=== PATIENT | female | born 1930 | race Hispanic/Latino ===

== ENCOUNTER 2019-01-26 13:16 | Inpatient (IN) | payer MEDICARE, BC ==
--- NOTE | 2019-01-26 14:10 | C.PDOC ---
History Of Present Illness PGY-[address] Cruz Patient is a 88 year old female with pmhx of vertigo was brought to the hospital via ambulance forworsening dizziness this morning. Patient was at home when starting feeling dizziness and tried to reach the door when she fell, hitting her right foot to the side of a kitchen table. Neighbor attended to her but was not able to stand up after fall due to right lower extremity/ankle pain. Patient denies LOC, headaches, vision or hearing changes, trauma to the head, chest pain, SOB, n/v. Patient states dizziness has resolved at this time. Patient has not followed her PMD in 4-5 years. <Edouard Cazares - Last Filed: 01/26/19 16:13> Patient seen and examined by me. Agree with above history. <Madison Cruz - Last Filed: 01/26/19 16:32> History Per: Patient History/Exam Limitations: no limitations Onset/Duration Of Symptoms: Mins Current Symptoms Are (Timing): Gone Associated Symptoms Preceding Syncopal Episode: No Predromal Symptoms (Sudden Onset), Lightheadedness Seizure Or Post-ictal Symptoms: None Possible Causative Factor(s): Vertigo Fall Associated With With Symptoms: Yes, Positive Injury (right LE, including ankle area ) Severity: Moderate - Symptoms Of CVA Associated Symptoms: denies: Impaired Speech, Seizure Activity, New Vision Deficit(Left), New Vision Deficit(Right), Decreased Ability To Walk Recent Head Trauma: No <Edouard Cazares - Last Filed: 01/26/19 16:13> <Madison Cruz - Last Filed: 01/26/19 16:32> Time Seen by Provider: 01/26/19 14:00 Chief Complaint (Nursing): Dizziness/Lightheaded Past Medical History Vital Signs: Last Vital Signs Temp 97.3 F L 01/26/19 13:24 Pulse 60 01/26/19 13:24 Resp 18 01/26/19 13:24 BP 175/76 H 01/26/19 13:24 Pulse Ox 99 01/26/19 13:24 Primary Care Provider: FAMILY PROVIDER,NO - Medical History PMH: Anemia Surgical History: No Surg Hx Family History: States: Unknown Family Hx - Social History Hx Tobacco Use: No Hx Alcohol Use: No Hx Substance Use: No - Immunization History Hx Tetanus Toxoid Vaccination: No Hx Influenza Vaccination: No Hx Pneumococcal Vaccination: No <Edouard Cazares - Last Filed: 01/26/19 16:13> Vital Signs: Last Vital Signs Temp 98.1 F 01/26/19 15:58 Pulse 64 01/26/19 15:58 Resp 18 01/26/19 13:24 BP 165/77 H 01/26/19 15:58 Pulse Ox 99 01/26/19 16:15 <Madison Cruz - Last Filed: 01/26/19 16:32> Review Of Systems Constitutional: Negative for: Fever, Chills, Weakness Eyes: Negative for: Vision Change Cardiovascular: Negative for: Chest Pain, Light Headedness Respiratory: Negative for: Cough, Shortness of Breath Genitourinary: Negative for: Dysuria, Frequency, Hematuria Musculoskeletal: Positive for: Leg Pain, Foot Pain Neurological: Positive for: Dizziness. Negative for: Weakness, Numbness, Change in Speech, Seizures, Altered Mental Status, Headache <Edouard Cazares - Last Filed: 01/26/19 16:13> Physical Exam - Physical Exam Appears: Non-toxic, No Acute Distress Skin: Normal Color, Warm, No Cyanotic Head: Atraumatic, Normacephalic, No Tenderness Eye(s): bilateral: Normal Inspection, PERRL, EOMI Oral Mucosa: Moist Tongue: Normal Appearing Neck: Normal, Normal ROM Cardiovascular: Rhythm Regular, No Edema, No Murmur Respiratory: Normal Breath Sounds, No Rales, No Rhonchi, No Wheezing Gastrointestinal/Abdominal: Normal Exam, Bowel Sounds Extremity: Tenderness (distal right lower extremity and ankle area), No Deformity, Swelling (right LE ) Pulses: Left Dorsalis Pedis: Normal, Right Dorsalis Pedis: Normal Neurological/Psych: Oriented x3, Normal Speech, Normal Cognition, Normal Cranial Nerves, Normal Motor, Normal Sensation, Other (normal cerebellar function ) Disoriented To: Person, Place, Time, Situation Extremity: Right: No Drift, Left: No Drift, Upper: No Drift <Edouard Cazares - Last Filed: 01/26/19 16:13> ED Course And Treatment - Laboratory Results Result Diagrams: 01/26/19 15:02 01/26/19 15:02 O2 Sat by Pulse Oximetry: 99 <Edouard Cazares - Last Filed: 01/26/19 16:13> - Laboratory Results Result Diagrams: 01/26/19 15:02 01/26/19 15:02 Lab Results: Total Bilirubin 0.5 mg/dL (0.2-1.3) 01/26/19 15:02 AST 22 U/L (14-36) 01/26/19 15:02 ALT 19 U/L (9-52) 01/26/19 15:02 Alkaline Phosphatase 67 U/L (38-126) 01/26/19 15:02 Total Protein 7.6 g/dL (6.3-8.3) 01/26/19 15:02 Albumin 4.3 g/dL (3.5-5.0) 01/26/19 15:02 Globulin 3.3 gm/dL (2.2-3.9) 01/26/19 15:02 Albumin/Globulin Ratio 1.3 (1.0-2.1) 01/26/19 15:02 Lab Interpretation: No Acute Changes ECG: Interpreted By De ECG Rhythm: Sinus Rhythm, 1st Degree HB ECG Interpretation: No Acute Changes - Radiology CXR: Interpreted by De CXR Interpretation: Yes: No Acute Disease - Other Rad right ankle/foot X-Ray: Interpreted by De Interpretation: Bimalleolar fracture - CT Scan/US head Other Rad Studies (CT/US): Read By Radiologist, Radiology Report Reviewed CT/US Interpretation: Accession No. : [id number]. Patient Name / ID : RUBY CHAPARRO / [id number]. Exam Date : 01/26/2019 14:35:59 ( Approved ). Study Comment : Sex / Age : F / 88Y. Creator : Ismael Paniagua MD. Dictator : Ismael Paniagua MD. 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 Approver2 : Report Date : 01/26/2019 14:54:57. My Comment : * . Date of service: 01/26/2019. PROCEDURE: CT HEAD WITHOUT CONTRAST. HISTORY: dizziness. COMPARISON: 03/08/2015. TECHNIQUE: Axial computed tomography images were obtained through the head/brain without intravenous contrast. Radiation dose: Total exam DLP = 941.3 mGy-cm. This CT exam was performed using one or more of the following dose reduction techniques: Automated exposure control, adjustment of the mA and/or kV according to patient size, and/or use of iterative reconstruction technique. FINDINGS: HEMORRHAGE: No intracranial hemorrhage. BRAIN: No mass effect or edema. Mild to moderate diffuse atrophy consistent with patient age. Patchy periventricular and deep white matter lucency consistent with microvascular white matter ischemic change. No evidence of acute infarct. VENTRICLES: Unremarkable. No hydrocephalus. CALVARIUM: Unremarkable. PARANASAL SINUSES: Sphenoid mucoperiosteal thickening consistent with chronic sinusitis. MASTOID AIR CELLS: Unremarkable as visualized. No inflammatory changes. OTHER FINDINGS: None. IMPRESSION: No intracranial mass, hemorrhage or evidence of acute infarct. Age related atrophy and chronic white matter ischemic change. Chronic sphenoid sinusitis. Progress Note: Patient seen and evaluated by podiatry. Plan admission for surgical repair of ankle fracture. - Physician Consult Information Outcome Of Conversation: Dr Haney willing to accept patient on his service for medical clearance and evaluation of intermittent dizziness. <Madison Cruz - Last Filed: 01/26/19 16:32> Medical Decision Making Medical Decision Making: -Ordered EKG, CBC, CMP - Chest Xray - Head CT w/o contrast - No intracranial mass, hemorrhage or evidence of acute infarct. Age related atrophy and chronic white matter ischemic change. Chronic sphenoid sinusitis. - Ordered Right Foot xray - possible bimalleolar fracture - CT w/o contrast of Rt LE ordered - Multiple fractures within obliques displaced distal fibular fracture with roughly 6 millimeters of distraction between the fracture fragments. Additional mildly displaced medial malleolar oblique fracture. Posterior malleolus minimally displaced fracture. Associated extensive circumferential soft tissue swelling. The midfoot and forefoot appear intact. 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
--- NOTE | 2019-01-26 14:58 | CT ---
Date of service: 01/26/2019 PROCEDURE: CT HEAD WITHOUT CONTRAST. HISTORY: dizziness COMPARISON: 03/08/2015 TECHNIQUE: Axial computed tomography images were obtained through the head/brain without intravenous contrast. Radiation dose: Total exam DLP = 941.3 mGy-cm. This CT exam was performed using one or more of the following dose reduction techniques: Automated exposure control, adjustment of the mA and/or kV according to patient size, and/or use of iterative reconstruction technique. FINDINGS: HEMORRHAGE: No intracranial hemorrhage. BRAIN: No mass effect or edema. Mild to moderate diffuse atrophy consistent with patient age. Patchy periventricular and deep white matter lucency consistent with microvascular white matter ischemic change. No evidence of acute infarct. VENTRICLES: Unremarkable. No hydrocephalus. CALVARIUM: Unremarkable. PARANASAL SINUSES: Sphenoid mucoperiosteal thickening consistent with chronic sinusitis. MASTOID AIR CELLS: Unremarkable as visualized. No inflammatory changes. OTHER FINDINGS: None. IMPRESSION: No intracranial mass, hemorrhage or evidence of acute infarct. Age related atrophy and chronic white matter ischemic change. Chronic sphenoid sinusitis.
--- NOTE | 2019-01-26 15:02 | CP.PCM.CON ---
History of Present Illness - History of Present Illness History of Present Illness: Podiatry Consult Note - Dr. Baer 88 y/o female with PMHx of vertigo seen in ED this afternoon for right ankle pain. She states she experienced a fall and twist of the ankle when coming out of her apartment earlier today. Admits she tried to stand up but could not bear weight on the ankle. States a neighbor called an ambulance who brought her here. At present, admits to pain all around the ankle joint. Denies tingling or burning but admits to mild numbness in the foot and toes. Denies any F/C/N/V/CP/SOB PSH: denies All: NKDA SocHx: lives alone in apartment, ambulatory without use of any assistive device. Sister in law and brother in law nearby. Denies use of EtOH, cigarettes or drug use FamHx: hypertension (mother) Review of Systems - Review of Systems All systems: reviewed and no additional remarkable complaints except (per HPI) Past Patient History - Infectious Disease Hx of Infectious Diseases: None - Past Social History Smoking Status: Never Smoked - NEUROLOGICAL Hx Vertigo: Yes - HEMATOLOGICAL/ONCOLOGICAL Hx Anemia: Yes - PSYCHIATRIC Hx Substance Use: No - SURGICAL HISTORY Hx Appendectomy: Yes - ANESTHESIA Hx Anesthesia: Yes Hx Anesthesia Reactions: No Hx Malignant Hyperthermia: No Meds Allergies/Adverse Reactions: Allergies Allergy/AdvReac Type Severity Reaction Status Date / Time No Known Allergies Allergy Verified 01/26/19 13:28 Physical Exam - Constitutional Appears: Well, Non-toxic, No Acute Distress - Extremities Exam Additional comments: Right lower extremity exam: Vasc: DP/PT pulses palpable 2/4. Temperature gradient warm to cool. Localized edema noted to perimalleolar region. CFT < 3 sec to all digits Ortho: tenderness to palpation of medial and lateral malleoli. Tenderness elicited on passive mobilization of ankle joint. Mild tenderness to posterior ankle joint. No tenderness on calf squeeze Derm: no open lesions, no erythema, no ecchymosis, no clinical signs of infection Neuro: protective and gross sensation intact Results - Vital Signs Recent Vital Signs: Last Vital Signs Temp 97.3 F L 01/26/19 13:24 Pulse 60 01/26/19 13:24 Resp 18 01/26/19 13:24 BP 175/76 H 01/26/19 13:24 Pulse Ox 99 05/22/19 14:41 - Labs Result Diagrams: 01/27/19 06:52 01/27/19 06:52 Assessment & Plan - Assessment and Plan (Free Text) Assessment: 88 y/o female with right trimalleolar ankle fracture secondary to fall Plan Patient seen and evaluated in ED Discussed plan with Dr. Buffy Souza ankle Xray and lower extremity CT reviewed- displaced oblique fibula fracture, mildly displaced medial malleolar fracture, minimally displaced posterior malleolar fracture RLE placed in well padded posterior splint - to remain strictly NWB to RLE with walker Pt to be admitted for surgical repair of unstable ankle with gait instability Requesting medical clearance/optimization at this time, appreciated Physical therapy to evaluate and treat patient with training with assistive device Likely surgery to be Thursday or Thursday pending edema status and patient's medical clearance Pain management per primary team Will continue to follow patient n house
[2019-01-26 15:12] LABS: BASO % 0.5 % (0.0-2.0); EOS # 0.1 K/uL (0.0-0.7); EOS % 0.8 % (0.0-4.0); HEMOGLOBIN 11.9 g/dL (11.0-16.0); LYMPH # 1.3 K/uL (1.0-4.3); LYMPH % 17.2 % (20.0-40.0); MEAN CORPUSCULAR HEMOGLOBIN 19.5 pg (27.0-31.0); MEAN CORPUSCULAR HGB CONC 32.2 g/dL (33.0-37.0); MEAN PLATELET VOLUME 9.1 fL (7.2-11.7); MONO # 0.5 K/uL (0.0-0.8); MONO % 6.8 % (0.0-10.0); NEUT # 5.8 K/uL (1.8-7.0); NEUT % 74.7 % (50.0-75.0); NRBC % 0.1 % (0.0-2.0); RBC 6.11 Mil/uL (3.80-5.20); RED CELL DISTRIBUTION WIDTH 17.9 % (11.5-14.5); WHITE BLOOD COUNT 7.8 K/uL (4.8-10.8)
[2019-01-26 15:13] LABS: MEAN CELL VOLUME 60.4 fL (81.0-99.0)
--- NOTE | 2019-01-26 15:20 | CT ---
Date of service: 01/26/2019 PROCEDURE: HISTORY: s/p fall, trauma to rt ankle/foot COMPARISON: TECHNIQUE: FINDINGS: Multiple fractures within obliques displaced distal fibular fracture with roughly 6 millimeters of distraction between the fracture fragments. Additional mildly displaced medial malleolar oblique fracture. Posterior malleolus minimally displaced fracture. Associated extensive circumferential soft tissue swelling. The midfoot and forefoot appear intact. IMPRESSION: Multiple ankle fractures as discussed above.
[2019-01-26 15:29] LABS: ALB/GLOB RATIO 1.3 (1.0-2.1); ALBUMIN 4.3 g/dL (3.5-5.0); ALT/SGPT 19 U/L (9-52); AST/SGOT 22 U/L (14-36); BLOOD UREA NITROGEN 14 mg/dL (7-17); CALCIUM 9.6 mg/dl (8.6-10.4); GFR NON-AFRICAN AMERICAN > 60
--- NOTE | 2019-01-26 15:39 | RAD ---
Date of service: 01/26/2019 HISTORY: dizziness COMPARISON: No prior. TECHNIQUE: 1 view obtained. FINDINGS: LUNGS: No active pulmonary disease. PLEURA: No significant pleural effusion identified, no pneumothorax apparent. CARDIOVASCULAR: No aortic atherosclerotic calcification present. Normal cardiac size. No pulmonary vascular congestion. OSSEOUS STRUCTURES: No significant abnormalities. VISUALIZED UPPER ABDOMEN: Normal. OTHER FINDINGS: None. IMPRESSION: No active disease.
--- NOTE | 2019-01-26 15:40 | RAD ---
Date of service: 01/26/2019 PROCEDURE: Right Foot Radiographs. HISTORY: s/p fall COMPARISON: None. TECHNIQUE: Two views obtained. FINDINGS: BONES: Examination limited to two views. Minimally displaced fracture of the medial malleolus and oblique fracture of the distal fibula. JOINTS: Hallux valgus deformity noted. Flexion deformity of the 2nd through 5th digits. No articular erosions. SOFT TISSUES: Normal. OTHER FINDINGS: None. IMPRESSION: Fracture medial malleolus and distal fibular diaphysis. Hallux valgus.
--- NOTE | 2019-01-26 15:41 | RAD ---
Date of service: 01/26/2019 PROCEDURE: Right Ankle Radiographs. HISTORY: s/p fall trauma to right foot/ankle COMPARISON: None available. TECHNIQUE: 3 views obtained. FINDINGS: BONES: Oblique mildly displaced fracture distal fibular diaphysis. Minimally displaced fracture of the medial malleolus. No additional fracture identified. JOINTS: Normal. No osteoarthritis. Ankle mortise maintained. Talar dome intact SOFT TISSUES: Normal. OTHER FINDINGS: None. IMPRESSION: Fracture distal fibula and medial malleolus.
--- NOTE | 2019-01-26 16:04 | CP.PCM.HP ---
History of Present Illness - History of Present Illness History of Present Illness: Medicine Note for Dr. Haney's Service This is an 88 year old female with PMHx of Vertigo who presents to the ED s/p mechanical fall. Patient states after getting ready this morning, she started to feel dizzy and lightheaded. She fell onto her buttocks, leaning more towards her right side. Denied LOC, syncope, or hitting her head. She was able to crawl to her front door and yell for help. Total time on the floor was less than 10-15 minutes as neighbors came right away to help and placed her in a chair. The ambulance was called shortly after. She admits to right ankle pain, worse with movement. ROS unremarkable otherwise. Patient is apprehensive about the surgery but wants to discuss with her sister in law and brother first before making a decision. 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 Patient lives alone in apartment complex. Ambulates without assistance, can perform all ADLs. years ago, no children. Brother and sister live in [place]. FHx: Mother: hypertension, at the age of 88 Father: in his 80s, patient unaware of what PMD: Mahsa (last seen 2 years ago) Present on Admission - Present on Admission Any Indicators Present on Admission: No Past Patient History - Infectious Disease Hx of Infectious Diseases: None - Past Social History Smoking Status: Never Smoked - NEUROLOGICAL Hx Vertigo: Yes - HEMATOLOGICAL/ONCOLOGICAL Hx Anemia: Yes - PSYCHIATRIC Hx Substance Use: No - SURGICAL HISTORY Hx Appendectomy: Yes - ANESTHESIA Hx Anesthesia: Yes Hx Anesthesia Reactions: No Hx Malignant Hyperthermia: No Meds Allergies/Adverse Reactions: Allergies Allergy/AdvReac Type Severity Reaction Status Date / Time No Known Allergies Allergy Verified 01/26/19 13:28 Physical Exam - Constitutional Appears: No Acute Distress - Head Exam Head Exam: NORMAL INSPECTION, NORMOCEPHALIC - Eye Exam Eye Exam: EOMI, Normal appearance, PERRL Pupil Exam: NORMAL ACCOMODATION - ENT Exam ENT Exam: Mucous Membranes Moist, Normal Exam - Respiratory Exam Respiratory Exam: Clear to Auscultation Bilateral, NORMAL BREATHING PATTERN. absent: Decreased Breath Sounds, Rales, Rhonchi, Wheezes - Cardiovascular Exam Cardiovascular Exam: REGULAR RHYTHM, RRR. absent: Tachycardia, Diastolic murmur, JVD, Systolic Murmur - GI/Abdominal Exam GI & Abdominal Exam: Normal Bowel Sounds, Soft. absent: Distended, Tenderness - Extremities Exam Extremities exam: Positive for: pedal pulses present Additional comments: right lower extremity in posterior splint pulses intact, warm to touch - Neurological Exam Neurological exam: Alert, Oriented x3 - Psychiatric Exam Psychiatric exam: Normal Affect, Normal Mood - Skin Skin Exam: Dry, Intact, Normal Color, Warm Results - Vital Signs Recent Vital Signs: Last Vital Signs Temp 98.1 F 01/26/19 15:58 Pulse 64 01/26/19 15:58 Resp 18 01/26/19 13:24 BP 165/77 H 01/26/19 15:58 Pulse Ox 99 01/26/19 15:58 - Labs Result Diagrams: 01/26/19 15:02 01/26/19 15:02 Labs: Laboratory Results - last 24 hr 01/26/19 01/26/19 15:02 15:02 WBC 7.8 RBC 6.11 H Hgb 11.9 Hct 36.9 MCV 60.4 L MCH 19.5 L MCHC 32.2 L RDW 17.9 H Plt Count 281 MPV 9.1 Neut % (Auto) 74.7 Lymph % (Auto) 17.2 L Clarke % (Auto) 6.8 Eos % (Auto) 0.8 Baso % (Auto) 0.5 Neut # (Auto) 5.8 Lymph # (Auto) 1.3 Clarke # (Auto) 0.5 Eos # (Auto) 0.1 Baso # (Auto) 0.0 Differential Comment Sodium 137 Potassium 4.1 Chloride 102 Carbon Dioxide 27 Anion Gap 13 BUN 14 Creatinine 0.7 Est GFR ( Amer) > 60 Est GFR (Non-Af Amer) > 60 Random Glucose 105 Calcium 9.6 Total Bilirubin 0.5 AST 22 ALT 19 Alkaline Phosphatase 67 Total Protein 7.6 Albumin 4.3 Globulin 3.3 Albumin/Globulin Ratio 1.3 Assessment & Plan - Assessment and Plan (Free Text) Plan: Right Distal Fibular Fracture Right Malleolar Fracture S/P Mechanical Fall -- Ortho consulted - Dr. Baer Imaging: - Head CT w/o contrast - No intracranial mass, hemorrhage or evidence of acute infarct. Age related atrophy and chronic white matter ischemic change. - Right Foot xray - possible bimalleolar fracture - CT w/o contrast of Rt LE ordered - Multiple fractures within obliques displaced distal fibular fracture with roughly 6 millimeters of distraction between the fracture fragments. Additional mildly displaced medial malleolar oblique fracture. Posterior malleolus minimally displaced fracture. Associated extensive circumferential soft tissue swelling. The midfoot and forefoot appear intact. 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 She is u nsure if she wants to proceed with the surgery. She wants to speak to her sister in law and brother before making a decision. Jannette Chase Dr., DO, PGY2
[2019-01-26] MEDS ORDERED: Oxycodone/Acetaminophen 5/325 mg Tab PO PRN (16:09)
[2019-01-27] MEDS ORDERED: Oxycodone/Acetaminophen 5/325 mg Tab PO PRN ×2 (06:47→06:57)
[2019-01-27 06:57] LABS: BASO # 0.1 K/uL (0.0-0.2); BASO % 0.8 % (0.0-2.0); EOS # 0.2 K/uL (0.0-0.7); EOS % 2.6 % (0.0-4.0); HEMOGLOBIN 11.2 g/dL (11.0-16.0); LYMPH # 1.2 K/uL (1.0-4.3); MEAN CELL VOLUME 60.6 fL (81.0-99.0); MEAN CORPUSCULAR HEMOGLOBIN 19.2 pg (27.0-31.0); MEAN CORPUSCULAR HGB CONC 31.7 g/dL (33.0-37.0); MONO # 0.7 K/uL (0.0-0.8); MONO % 10.1 % (0.0-10.0); NEUT % 69.5 % (50.0-75.0); RBC 5.83 Mil/uL (3.80-5.20); RED CELL DISTRIBUTION WIDTH 17.5 % (11.5-14.5); WHITE BLOOD COUNT 7.2 K/uL (4.8-10.8)
--- NOTE | 2019-01-27 07:00 | CP.PCM.PN ---
Subjective - Date & Time of Evaluation Date of Evaluation: 01/27/19 Time of Evaluation: 06:59 - Subjective Subjective: Resident Progress Note for Dr. Haney Patient examined at bedside. Was given antivert overnight for dizziness which she states did not help her and only made her sleepy. Patient complaining of nausea, sinus pressure, and lack of appetite. Pain is persistent in right ankle. Denies fevers, chills, chest pain, shortness of breath, abdominal pain. Objective - Vital Signs/Intake and Output Vital Signs (last 24 hours): Temp Pulse Resp BP Pulse Ox 98.1 F 67 20 130/73 92 L 01/27/19 04:30 01/27/19 04:30 01/27/19 04:30 01/27/19 04:30 01/27/19 04:30 Intake and Output: 01/26/19 01/27/19 18:59 06:59 Intake Total 240 Balance 240 - Medications Medications: Current Medications Acetaminophen (Tylenol 325mg Tab) 650 mg PO Q6 PRN PRN Reason: Pain, Mild (1-3) Last Admin: 01/27/19 01:28 Dose: 650 mg Enoxaparin Sodium (Lovenox) 40 mg SC DAILY ELIZABETH Ketorolac Tromethamine (Toradol) 30 mg IV Q6 PRN PRN Reason: Pain, moderate (4-7) Ondansetron HCl (Zofran Inj) 4 mg IVP Q6H PRN PRN Reason: Nausea/Vomiting Last Admin: 01/26/19 22:46 Dose: 4 mg Oxycodone/Acetaminophen (Percocet 5/325 Mg Tab) 1 tab PO Q6H PRN PRN Reason: Pain, severe (8-10) Stop: 01/29/19 16:10 Oxycodone/Acetaminophen (Percocet 5/325 Mg Tab) 0.5 tab PO ONCE PRN PRN Reason: Pain, severe (8-10) Stop: 01/30/19 06:48 - Labs Labs: 01/27/19 06:52 01/26/19 15:02 - Constitutional Appears: No Acute Distress - Head Exam Head Exam: ATRAUMATIC, NORMOCEPHALIC - Eye Exam Eye Exam: EOMI, Normal appearance, PERRL - ENT Exam ENT Exam: Mucous Membranes Moist - Respiratory Exam Respiratory Exam: Clear to Auscultation Bilateral, NORMAL BREATHING PATTERN. absent: Decreased Breath Sounds, Rales, Rhonchi, Wheezes - Cardiovascular Exam Cardiovascular Exam: REGULAR RHYTHM, RRR. absent: Tachycardia, Systolic Murmur - GI/Abdominal Exam GI & Abdominal Exam: Normal Bowel Sounds, Soft. absent: Distended, Tenderness - Extremities Exam Extremities exam: Positive for: pedal pulses present Additional comments: right lower extremity in posterior splint pulses and sensation intact - Neurological Exam Neurological exam: Alert, Awake, Oriented x3 - Psychiatric Exam Psychiatric exam: Normal Affect, Normal Mood - Skin Skin Exam: Dry, Intact, Normal Color, Warm Assessment and Plan - Assessment and Plan (Free Text) Plan: Right Distal Fibular/Malleolar Fracture - Podiatry consulted - Dr. Baer - Right Foot xray - possible bimalleolar fracture - CT w/o contrast - Multiple fractures within obliques displaced distal fibular fracture with roughly 6 millimeters of distraction between the fracture fragments. Additional mildly displaced medial malleolar oblique fracture. Posterior malleolus minimally displaced fracture. Associated extensive circumferential soft tissue swelling. The midfoot and forefoot appear intact. - posterior foot splint to immobilize joint - Tylenol (mild), Toradol (moderate), and Percocet (severe) PRN for pain - 2 units of blood ordered, patient is unsure if she wants to proceed for surgery, once decided then she will sign consent - PT/OT s/p Mechanical Fall - CXR: No infiltrates noted - Head CT w/o contrast - No intracranial mass, hemorrhage or evidence of acute infarct. Age related atrophy and chronic white matter ischemic change. 1st Degree Heart Block - ECHO results pending Vertigo - Chronic - patient has been evaluated by ENT previously PPX - GI PPX: Not indicated - DVT PPX: SCDs, Lovenox Disposition: Plan for OR pending patient's decision and medical clearance Case reviewed with Dr. Medina Daugherty PGY-1
[2019-01-27 07:08] LABS: INR 1.2; PROTHROMBIN TIME 13.2 SECONDS (9.7-12.2)
[2019-01-27 07:14] LABS: ALB/GLOB RATIO 1.6 (1.0-2.1); ALBUMIN 4.1 g/dL (3.5-5.0); ALT/SGPT 16 U/L (9-52); AST/SGOT 19 U/L (14-36); BLOOD UREA NITROGEN 12 mg/dL (7-17); CALCIUM 8.9 mg/dl (8.6-10.4); GFR NON-AFRICAN AMERICAN > 60; HDL CHOLESTEROL 71 mg/dL (30-70)
[2019-01-27 07:22] LABS: CK-MB 0.42 ng/mL (0.0-3.38)
[2019-01-27 07:25] LABS: LDL CHOLESTEROL 84 mg/dL (0-129); PARTIAL THROMBOPLASTIN TIME 30.7 SECONDS (21-34)
[2019-01-27] MEDS: Enoxaparin 40 mg Syringe SC SCH (09:19)
--- NOTE | 2019-01-27 13:24 | CP.PCM.PN ---
Subjective - Date & Time of Evaluation Date of Evaluation: 01/27/19 Time of Evaluation: 13:24 - Subjective Subjective: Podiatry Progress Note- Dr. Baer 88 y/o female seen at bedside this morning with right displaced trimalleolar ankle fracture. Pt resting comfortably in bed at time of visit with right leg elevated on pillow. States she has been feeling nauseous all morning after taking pain meds. Says she has little appetite. Admits to consistent pain in the right ankle. Admits to mild tingling in the ankle but no burning or numbness. Denies F/C/V/CP/SOB Objective - Vital Signs/Intake and Output Vital Signs (last 24 hours): Temp Pulse Resp BP Pulse Ox 97.7 F 70 20 144/68 95 01/27/19 07:00 01/27/19 07:00 01/27/19 07:00 01/27/19 07:00 01/27/19 07:00 Intake and Output: 01/27/19 01/27/19 06:59 18:59 Intake Total 240 Balance 240 - Medications Medications: Current Medications Acetaminophen (Tylenol 325mg Tab) 650 mg PO Q6 PRN PRN Reason: Pain, Mild (1-3) Last Admin: 01/27/19 01:28 Dose: 650 mg Enoxaparin Sodium (Lovenox) 40 mg SC DAILY ELIZABETH Last Admin: 01/27/19 09:19 Dose: 40 mg Ketorolac Tromethamine (Toradol) 30 mg IV Q6 PRN PRN Reason: Pain, moderate (4-7) Last Admin: 01/27/19 09:19 Dose: 30 mg Ondansetron HCl (Zofran Inj) 4 mg IVP Q6H PRN PRN Reason: Nausea/Vomiting Last Admin: 01/26/19 22:46 Dose: 4 mg Oxycodone/Acetaminophen (Percocet 5/325 Mg Tab) 1 tab PO Q6H PRN PRN Reason: Pain, severe (8-10) Stop: 01/29/19 16:10 Tramadol HCl (Ultram) 50 mg PO ONCE PRN PRN Reason: Pain, moderate (4-7) Last Admin: 01/27/19 07:13 Dose: 50 mg - Labs Labs: 01/27/19 06:52 01/27/19 06:52 PT 13.2 SECONDS (9.7-12.2) H 01/27/19 06:52 INR 1.2 01/27/19 06:52 APTT 30.7 SECONDS (21-34) 01/27/19 06:52 - Constitutional Appears: Well, Non-toxic, No Acute Distress - Extremities Exam Additional comments: RLE in posterior splint - no signs of wear; clean ,dry and intact Pt can wiggle toes without difficulty noted No strikethrough noted Capillary refill time < 3 sec to all digits - Neurological Exam Neurological Exam: Alert, Awake, Oriented x3 - Psychiatric Exam Psychiatric exam: Normal Affect, Normal Mood Assessment and Plan - Assessment and Plan (Free Text) Assessment: 88 y/o female with right trimalleolar ankle fracture secondary to fall Plan Patient seen and evaluated at bedside Discussed plan with Dr. Buffy Souza ankle Xray and R lower extremity CT reveals displaced oblique fibula fracture, mildly displaced medial malleolar fracture, minimally displaced posterior malleolar fracture RLE in well padded posterior splint - to remain strictly NWB to RLE with walker Pt scheduled for ORIF of R ankle tomorrow 9am Medical clearance requested, appreciated NPO past midnight Anti-coagulants to be held Physical therapy team on board for gait instability/management of NWB status with use of assistive device Pain management per primary team Will continue to follow patient n house
[2019-01-27] MEDS ORDERED: Fluticasone Nasal 50 mcg/Spray NAS PRN (14:49)
--- NOTE | 2019-01-27 21:18 | CP.PCM.PCO ---
Addendum Addendum: 01/27/19 21:15 Pt refusing to consent for surgery in AM, spoke w/ Primary Dr Haney, Pt will be reassessed in AM, cancel NPO diet past midnight, f/u with Podiatry on recs for scheduling procedure. May need to be transferred to rehab and have her come back for ORIF, Pt still is NWB cannot go home. unsafe discharge. CK PGY1
--- NOTE | 2019-01-27 22:22 | CARD ---
APPROVED REPORT Date of service: 01/27/2019 EXAM: Two-dimensional and M-mode echocardiogram with Doppler and color Doppler. Other Information Quality : TDSRhythm : INDICATION Pre-Op 2D DIMENSIONS IVSd0.8 (0.7-1.1cm)LVDd4.5 (3.9-5.9cm) PWd0.9 (0.7-1.1cm)LA Nwlble06 (18-58mL) LVDs2.6 (2.5-4.0cm)FS (%) 41.2 % LVEF (%)72.2 (>50%)LVEF (Dinh's)66.15 % M-Mode DIMENSIONS Left Atrium (MM)3.68 (2.5-4.0cm)IVSd1.11 (0.7-1.1cm) Aortic Root3.39 (2.2-3.7cm)LVDd5.03 (4.0-5.6cm) Aortic Cusp Exc.2.13 (1.5-2.0cm)PWd1.00 (0.7-1.1cm) FS (%) 38 %LVDs3.12 (2.0-3.8cm) LVEF (%)68 (>50%) Mitral Valve MV E Ogqecguy76.5cm/sMV A Nuxjnvzl43.2cm/sE/A ratio1.3 TDI Lateral E' Peak V5.45cm/sMedial E' Peak V4.87cm/sE/Lateral E'15.0 E/Medial E'16.7 Tricuspid Valve TR Peak Bsqnmwrn639xs/sTR Peak Gr.[id number] LEFT VENTRICLE The left ventricle is normal size. There is normal left ventricular wall thickness. Left ventricle systolic function is normal. The Ejection Fraction is 65-70%. There is normal LV segmental wall motion. The left ventricular diastolic function is normal. RIGHT VENTRICLE The right ventricle is normal size. There is normal right ventricular wall thickness. The right ventricular systolic function is normal. ATRIA The left atrium size is normal. The right atrium size is normal. The interatrial septum is intact with no evidence for an atrial septal defect. AORTIC VALVE The aortic valve is normal in structure. No aortic regurgitation is present. There is no aortic valvular stenosis. There is no aortic valvular vegetation. MITRAL VALVE The mitral valve is normal in structure. There is no evidence of mitral valve prolapse. There is no mitral valve stenosis. Mitral regurgitation is trace to mild. TRICUSPID VALVE The tricuspid valve is normal in structure. There is mild tricuspid regurgitation. Right ventricular systolic pressure is estimated at 30-40 mmHg. There is mild pulmonary hypertension. PULMONIC VALVE The pulmonic valve is not well visualized. There is mild pulmonic valvular regurgitation. GREAT VESSELS The aortic root is normal in size. PERICARDIAL EFFUSION There is no significant pericardial effusion. <Conclusion> Left ventricle systolic function is normal. The Ejection Fraction is 65-70%. No aortic regurgitation is present. Mitral regurgitation is trace to mild. There is mild tricuspid regurgitation. There is mild pulmonary hypertension. There is mild pulmonic valvular regurgitation.
[2019-01-28 06:44] LABS: BASO # 0.1 K/uL (0.0-0.2); BASO % 1.4 % (0.0-2.0); EOS # 0.1 K/uL (0.0-0.7); EOS % 1.9 % (0.0-4.0); HEMOGLOBIN 10.9 g/dL (11.0-16.0); LYMPH # 1.1 K/uL (1.0-4.3); LYMPH % 17.2 % (20.0-40.0); MEAN CELL VOLUME 60.2 fL (81.0-99.0); MEAN CORPUSCULAR HEMOGLOBIN 19.4 pg (27.0-31.0); MEAN CORPUSCULAR HGB CONC 32.3 g/dL (33.0-37.0); MEAN PLATELET VOLUME 9.4 fL (7.2-11.7); MONO # 0.6 K/uL (0.0-0.8); MONO % 8.9 % (0.0-10.0); NEUT # 4.7 K/uL (1.8-7.0); NEUT % 70.6 % (50.0-75.0); NRBC % 0.1 % (0.0-2.0); RBC 5.6 Mil/uL (3.80-5.20); RED CELL DISTRIBUTION WIDTH 17.2 % (11.5-14.5); WHITE BLOOD COUNT 6.6 K/uL (4.8-10.8)
--- NOTE | 2019-01-28 07:19 | CP.PCM.PN ---
Subjective - Date & Time of Evaluation Date of Evaluation: 01/28/19 Time of Evaluation: : - Subjective Subjective: Progress note for Dr. Haney. Patient seen and examined at bedside. States dizziness, headache and leg pain have improved since yesterday. Denies fevers, chills, chest pain, shortness of breath, abdominal pain. Objective - Vital Signs/Intake and Output Vital Signs (last 24 hours): Temp Pulse Resp BP Pulse Ox 98.3 F 72 20 143/85 95 01/28/19 00:00 01/28/19 00:00 01/28/19 00:00 01/28/19 00:00 01/28/19 00:00 - Medications Medications: Current Medications Acetaminophen (Tylenol 325mg Tab) 650 mg PO Q6 PRN PRN Reason: Pain, Mild (1-3) Last Admin: 01/27/19 15:01 Dose: 650 mg Enoxaparin Sodium (Lovenox) 40 mg SC DAILY ELIZABETH Last Admin: 01/27/19 09:19 Dose: 40 mg Fluticasone Propionate (Flonase) 0 spr VEDA DAILY PRN PRN Reason: Sinus symptoms Ketorolac Tromethamine (Toradol) 30 mg IV Q6 PRN PRN Reason: Pain, moderate (4-7) Last Admin: 01/27/19 09:19 Dose: 30 mg Ondansetron HCl (Zofran Inj) 4 mg IVP Q6H PRN PRN Reason: Nausea/Vomiting Last Admin: 01/27/19 14:27 Dose: 4 mg Oxycodone/Acetaminophen (Percocet 5/325 Mg Tab) 1 tab PO Q6H PRN PRN Reason: Pain, severe (8-10) Stop: 01/29/19 16:10 Tramadol HCl (Ultram) 50 mg PO ONCE PRN PRN Reason: Pain, moderate (4-7) Last Admin: 01/27/19 07:13 Dose: 50 mg - Labs Labs: 01/28/19 06:38 01/27/19 06:52 PT 13.2 SECONDS (9.7-12.2) H 01/27/19 06:52 INR 1.2 01/27/19 06:52 APTT 30.7 SECONDS (21-34) 01/27/19 06:52 - Constitutional Appears: Non-toxic, No Acute Distress - Head Exam Head Exam: ATRAUMATIC, NORMOCEPHALIC - Eye Exam Eye Exam: EOMI, Normal appearance, PERRL - ENT Exam ENT Exam: Mucous Membranes Moist - Neck Exam Neck Exam: Full ROM, Normal Inspection - Respiratory Exam Respiratory Exam: Clear to Ausculation Bilateral, NORMAL BREATHING PATTERN. absent: Decreased Breath Sounds, Rales, Rhonchi, Wheezes, Respiratory Distress - Cardiovascular Exam Cardiovascular Exam: REGULAR RHYTHM, +S1, +S2 - GI/Abdominal Exam GI & Abdominal Exam: Soft, Normal Bowel Sounds. absent: Distended, Firm, Guarding, Rigid, Tenderness, Rebound - Extremities Exam Additional comments: right lower extremity splinted and bandaged, neurovascular intact, able to move toes - Neurological Exam Neurological Exam: Alert, Awake, CN II-XII Intact, Oriented x3 - Psychiatric Exam Psychiatric exam: Normal Affect, Normal Mood - Skin Skin Exam: Dry, Normal Color, Warm Assessment and Plan - Assessment and Plan (Free Text) Plan: 88 year old female with PMhx of vertigo Right Distal Fibular/Malleolar Fracture - Right Foot xray - possible bimalleolar fracture - CT w/o contrast - Multiple fractures within obliques displaced distal fibular fracture with roughly 6 millimeters of distraction between the fracture fragments. Additional mildly displaced medial malleolar oblique fracture. Posterior malleolus minimally displaced fracture. Associated extensive circumferential soft tissue swelling. The midfoot and forefoot appear intact. - Podiatry consulted - Dr. Baer - Patient declined surgical intervention - posterior foot splint to immobilize joint - Tylenol (mild), Toradol (moderate), and Percocet (severe) PRN for pain - PT/OT- recommend MANSI s/p Mechanical Fall - CXR: No infiltrates noted - Head CT w/o contrast - No intracranial mass, hemorrhage or evidence of acute infarct. Age related atrophy and chronic white matter ischemic change. 1st Degree Heart Block - ECHO results pending Vertigo - Chronic - patient has been evaluated by ENT previously - meclizine 25mg PO Q6H PRN dizziness PPX - GI PPX: Not indicated - DVT PPX: SCDs, Lovenox Disposition: Patient declined surgical intervention. PT recommends MANSI, placement pending. Case reviewed with Dr. Medina Hutson, PGY-1
[2019-01-28 07:25] LABS: ALB/GLOB RATIO 1.3 (1.0-2.1); ALBUMIN 3.9 g/dL (3.5-5.0); ALT/SGPT 18 U/L (9-52); AST/SGOT 21 U/L (14-36); BLOOD UREA NITROGEN 14 mg/dL (7-17); CALCIUM 9.1 mg/dl (8.6-10.4); GFR NON-AFRICAN AMERICAN > 60
[2019-01-28] MEDS: Enoxaparin 40 mg Syringe SC SCH (11:19)
--- NOTE | 2019-01-28 14:29 | CP.PCM.PN ---
Subjective - Date & Time of Evaluation Date of Evaluation: 01/28/19 Time of Evaluation: 14:29 - Subjective Subjective: Podiatry Progress Note- Dr. Baer 88 y/o female seen at bedside today with right displaced trimalleolar ankle fracture. Pt resting comfortably in bedside chair at time of visit with right leg elevated on foot stand. Says her nausea has resolved and she has her appetite back. States pain in ankle is well controlled now. Continues to express hesitancy towards surgery but says she may be agreeable to it next week. For now, she wishes to go to rehab facility and continue current treatment with immobilization. Denies tingling, numbness or burning in the right lower extremities. Denies F/C/N/V/CP/SOB Objective - Vital Signs/Intake and Output Vital Signs (last 24 hours): Temp Pulse Resp BP Pulse Ox 98.1 F 69 20 160/80 H 97 01/28/19 07:00 01/28/19 07:00 01/28/19 07:00 01/28/19 07:00 01/28/19 07:00 - Medications Medications: Current Medications Acetaminophen (Tylenol 325mg Tab) 650 mg PO Q6 PRN PRN Reason: Pain, Mild (1-3) Last Admin: 01/27/19 15:01 Dose: 650 mg Enoxaparin Sodium (Lovenox) 40 mg SC DAILY ELIZABETH Last Admin: 01/28/19 11:19 Dose: 40 mg Fluticasone Propionate (Flonase) 0 spr VEDA DAILY PRN PRN Reason: Sinus symptoms Ketorolac Tromethamine (Toradol) 30 mg IV Q6 PRN PRN Reason: Pain, moderate (4-7) Last Admin: 01/27/19 09:19 Dose: 30 mg Meclizine HCl (Antivert) 25 mg PO Q6H PRN PRN Reason: Dizziness Ondansetron HCl (Zofran Inj) 4 mg IVP Q6H PRN PRN Reason: Nausea/Vomiting Last Admin: 01/27/19 14:27 Dose: 4 mg Oxycodone/Acetaminophen (Percocet 5/325 Mg Tab) 1 tab PO Q6H PRN PRN Reason: Pain, severe (8-10) Stop: 01/29/19 16:10 Tramadol HCl (Ultram) 50 mg PO ONCE PRN PRN Reason: Pain, moderate (4-7) Last Admin: 01/27/19 07:13 Dose: 50 mg - Labs Labs: 01/28/19 06:38 01/28/19 06:38 PT 13.2 SECONDS (9.7-12.2) H 01/27/19 06:52 INR 1.2 01/27/19 06:52 APTT 30.7 SECONDS (21-34) 01/27/19 06:52 - Constitutional Appears: Well, Non-toxic, No Acute Distress - Extremities Exam Additional comments: RLE in posterior splint - clean, dry and intact Pt can wiggle toes without difficulty No strikethrough noted on dressings Capillary refill time < 3 sec to all digits - Neurological Exam Neurological Exam: Alert, Awake, Oriented x3 - Psychiatric Exam Psychiatric exam: Normal Affect, Normal Mood Assessment and Plan - Assessment and Plan (Free Text) Assessment: 88 y/o female with right trimalleolar ankle fracture secondary to fall Plan Patient seen and evaluated at bedside Discussed plan with Dr. Baer R ankle Xray and R lower extremity CT reveals displaced oblique fibula fracture, mildly displaced medial malleolar fracture, minimally displaced posterior malleolar fracture RLE in well padded posterior splint - to remain strictly NWB to RLE with walker Pt refusing surgery at this time, with concerns for undergoing anesthesia Recommend transfer to [facility], with scheduling of ORIF at a later date if pt is agreeable Physical therapy team on board for gait instability/management of NWB status with use of assistive device Pain management per primary team Will continue to follow patient in house
--- NOTE | 2019-01-29 00:29 | CARD ---
APPROVED REPORT Date of service: 01/27/2019 EKG Measurement Heart [id number] <Conclusion> Sinus rhythm with 1st degree AV block with premature supraventricular complexes Left ventricular hypertrophy with repolarization abnormality Abnormal ECG
--- NOTE | 2019-01-29 01:09 | CP.PCM.PN ---
Subjective - Date & Time of Evaluation Date of Evaluation: 01/29/19 Time of Evaluation: 01:06 - Subjective Subjective: Resident Progress Note for Dr. Haney Patient examined at bedside. No acute events overnight. Patient states she feels better overall, with improvement in nausea and dizziness. Denies fevers, chills, chest pain, shortness of breath, abdominal pain, diarrhea, dysuria. Objective - Vital Signs/Intake and Output Vital Signs (last 24 hours): Temp Pulse Resp BP Pulse Ox 98.5 F 73 20 146/72 95 01/28/19 23:25 01/28/19 23:25 01/28/19 23:25 01/28/19 23:25 01/28/19 23:25 - Medications Medications: Current Medications Acetaminophen (Tylenol 325mg Tab) 650 mg PO Q6 PRN PRN Reason: Pain, Mild (1-3) Last Admin: 01/27/19 15:01 Dose: 650 mg Enoxaparin Sodium (Lovenox) 40 mg SC DAILY ELIZABETH Last Admin: 01/28/19 11:19 Dose: 40 mg Fluticasone Propionate (Flonase) 0 spr VEDA DAILY PRN PRN Reason: Sinus symptoms Ketorolac Tromethamine (Toradol) 30 mg IV Q6 PRN PRN Reason: Pain, moderate (4-7) Last Admin: 01/27/19 09:19 Dose: 30 mg Meclizine HCl (Antivert) 25 mg PO Q6H PRN PRN Reason: Dizziness Ondansetron HCl (Zofran Inj) 4 mg IVP Q6H PRN PRN Reason: Nausea/Vomiting Last Admin: 01/28/19 22:22 Dose: 4 mg Oxycodone/Acetaminophen (Percocet 5/325 Mg Tab) 1 tab PO Q6H PRN PRN Reason: Pain, severe (8-10) Stop: 01/29/19 16:10 Tramadol HCl (Ultram) 50 mg PO ONCE PRN PRN Reason: Pain, moderate (4-7) Last Admin: 01/27/19 07:13 Dose: 50 mg - Labs Labs: 01/28/19 06:38 01/28/19 06:38 PT 13.2 SECONDS (9.7-12.2) H 01/27/19 06:52 INR 1.2 01/27/19 06:52 APTT 30.7 SECONDS (21-34) 01/27/19 06:52 - Constitutional Appears: Well, No Acute Distress - Head Exam Head Exam: ATRAUMATIC, NORMOCEPHALIC - Eye Exam Eye Exam: EOMI, Normal appearance - ENT Exam ENT Exam: Mucous Membranes Moist - Neck Exam Neck Exam: Full ROM, Normal Inspection - Respiratory Exam Respiratory Exam: Clear to Ausculation Bilateral, NORMAL BREATHING PATTERN. absent: Decreased Breath Sounds, Rales, Rhonchi, Wheezes, Respiratory Distress - Cardiovascular Exam Cardiovascular Exam: REGULAR RHYTHM, +S1, +S2 - GI/Abdominal Exam GI & Abdominal Exam: Soft, Normal Bowel Sounds. absent: Distended, Firm, Guarding, Rigid, Tenderness, Rebound - Extremities Exam Additional comments: right lower extremity splinted and bandaged, neurovascular intact, able to move toes - Neurological Exam Neurological Exam: Alert, Awake, CN II-XII Intact, Oriented x3 - Psychiatric Exam Psychiatric exam: Normal Affect, Normal Mood - Skin Skin Exam: Dry, Normal Color, Warm Assessment and Plan - Assessment and Plan (Free Text) Plan: Right Distal Fibular/Malleolar Fracture - Right Foot xray - possible bimalleolar fracture - CT w/o contrast - Multiple fractures within obliques displaced distal fibular fracture with roughly 6 millimeters of distraction between the fracture fragments. Additional mildly displaced medial malleolar oblique fracture. Posterior malleolus minimally displaced fracture. Associated extensive ci rcumferential soft tissue swelling. The midfoot and forefoot appear intact. - Podiatry consulted - Dr. Baer - Patient declined surgical intervention - posterior foot splint to immobilize joint - Tylenol (mild), Toradol (moderate), and Percocet (severe) PRN for pain - PT/OT- recommend MANSI s/p Mechanical Fall - CXR: No infiltrates noted - Head CT w/o contrast - No intracranial mass, hemorrhage or evidence of acute infarct. Age related atrophy and chronic white matter ischemic change. 1st Degree Heart Block - ECHO shows EF 65-70%, mild MR/TR/pulmonary hypertension Vertigo - Chronic - patient has been evaluated by ENT previously - meclizine 25mg PO Q6H PRN dizziness PPX - GI PPX: Not indicated - DVT PPX: SCDs, Lovenox Disposition: Patient declined surgical intervention. PT recommends MANSI, placement pending. Alyssa Daugherty PGY-1
[2019-01-29 07:10] LABS: BASO # 0.1 K/uL (0.0-0.2); BASO % 2.2 % (0.0-2.0); EOS # 0.2 K/uL (0.0-0.7); EOS % 3.5 % (0.0-4.0); HEMOGLOBIN 11.4 g/dL (11.0-16.0); LYMPH # 1.9 K/uL (1.0-4.3); LYMPH % 29.2 % (20.0-40.0); MEAN CELL VOLUME 59.7 fL (81.0-99.0); MEAN CORPUSCULAR HEMOGLOBIN 19.3 pg (27.0-31.0); MEAN CORPUSCULAR HGB CONC 32.4 g/dL (33.0-37.0); MEAN PLATELET VOLUME 9.3 fL (7.2-11.7); MONO # 0.7 K/uL (0.0-0.8); MONO % 10.4 % (0.0-10.0); NEUT # 3.6 K/uL (1.8-7.0); NEUT % 54.7 % (50.0-75.0); RBC 5.88 Mil/uL (3.80-5.20); RED CELL DISTRIBUTION WIDTH 17.2 % (11.5-14.5); WHITE BLOOD COUNT 6.5 K/uL (4.8-10.8)
[2019-01-29 07:18] LABS: ALB/GLOB RATIO 1.3 (1.0-2.1); ALBUMIN 3.8 g/dL (3.5-5.0); ALT/SGPT 19 U/L (9-52); AST/SGOT 17 U/L (14-36); BLOOD UREA NITROGEN 14 mg/dL (7-17); CALCIUM 9.1 mg/dl (8.6-10.4); GFR NON-AFRICAN AMERICAN > 60
[2019-01-29] MEDS: Enoxaparin 40 mg Syringe SC SCH (09:30)
--- NOTE | 2019-01-29 12:47 | CP.PCM.PN ---
Subjective - Date & Time of Evaluation Date of Evaluation: 01/29/19 Time of Evaluation: 12:43 - Subjective Subjective: Podiatry Progress Note- Dr. Baer 88 y/o female seen and evaluated at bedside for right displaced trimalleolar ankle fracture. Pt resting comfortably in bed at time of visit with right leg elevated on foot stand. She states that she still has some nausea. She states pain in ankle is well controlled now. She states that she is going to move to [facility] soon. She denies tingling, numbness or burning in the right lower extremities. She denies any overnight F/C/N/V/CP/SOB Objective - Vital Signs/Intake and Output Vital Signs (last 24 hours): Temp Pulse Resp BP Pulse Ox 98 F 61 18 130/68 96 01/29/19 07:30 01/29/19 07:30 01/29/19 07:30 01/29/19 07:30 01/29/19 07:30 - Medications Medications: Current Medications Acetaminophen (Tylenol 325mg Tab) 650 mg PO Q6 PRN PRN Reason: Pain, Mild (1-3) Last Admin: 01/27/19 15:01 Dose: 650 mg Enoxaparin Sodium (Lovenox) 40 mg SC DAILY [facility] Last Admin: 01/29/19 09:30 Dose: 40 mg Famotidine (Pepcid) 20 mg PO DAILY [facility] Last Admin: 01/29/19 10:27 Dose: 20 mg Fluticasone Propionate (Flonase) 0 spr VEDA DAILY PRN PRN Reason: Sinus symptoms Ketorolac Tromethamine (Toradol) 30 mg IV Q6 PRN PRN Reason: Pain, moderate (4-7) Last Admin: 01/27/19 09:19 Dose: 30 mg Meclizine HCl (Antivert) 25 mg PO Q6H PRN PRN Reason: Dizziness Ondansetron HCl (Zofran Inj) 4 mg IVP Q6H PRN PRN Reason: Nausea/Vomiting Last Admin: 01/29/19 09:26 Dose: 4 mg Oxycodone/Acetaminophen (Percocet 5/325 Mg Tab) 1 tab PO Q6H PRN PRN Reason: Pain, severe (8-10) Stop: 01/29/19 16:10 Tramadol HCl (Ultram) 50 mg PO ONCE PRN PRN Reason: Pain, moderate (4-7) Last Admin: 01/27/19 07:13 Dose: 50 mg - Labs Labs: 01/29/19 07:02 01/29/19 07:02 PT 13.2 SECONDS (9.7-12.2) H 01/27/19 06:52 INR 1.2 01/27/19 06:52 APTT 30.7 SECONDS (21-34) 01/27/19 06:52 - Constitutional Appears: Well, Non-toxic, No Acute Distress - Head Exam Head Exam: ATRAUMATIC, NORMOCEPHALIC - Extremities Exam Additional comments: RLE in posterior splint - clean, dry and intact Pt can wiggle toes without difficulty No strike through noted on dressings Capillary refill time < 3 sec to all digits Gross sensation intact - Neurological Exam Neurological Exam: Alert, Awake, Oriented x3 - Psychiatric Exam Psychiatric exam: Normal Affect, Normal Mood Assessment and Plan - Assessment and Plan (Free Text) Assessment: 88 y/o female seen and evaluated for right trimalleolar ankle fracture secondary to fall Plan: Patient seen and evaluated at bedside Discussed plan with Dr. Baer R ankle Xray and R lower extremity CT reveals displaced oblique fibula fracture, mildly displaced medial malleolar fracture, minimally displaced posterior malleolar fracture RLE in well padded posterior splint - to remain strictly NWB to RLE with walker Pt refusing surgery at this time, with concerns for undergoing anesthesia Recommend transfer to [facility], with scheduling of ORIF at a later date if pt is agreeable Physical therapy team on board for gait instability/management of NWB status with use of assistive device Pain management per primary team Podiatry will continue to follow up the patient while in house
--- NOTE | 2019-01-30 02:30 | CP.PCM.PN ---
Subjective - Date & Time of Evaluation Date of Evaluation: 01/30/19 Time of Evaluation: 02:30 - Subjective Subjective: Resident Progress Note for Dr. Haney Patient examined at bedside. No acute events overnight. Patient reports im provement in nausea and dizziness. Denies worsening of pain in right ankle. Denies fevers, chills, chest pain, shortness of breath, abdominal pain, diarrhea, dysuria. Objective - Vital Signs/Intake and Output Vital Signs (last 24 hours): Temp Pulse Resp BP Pulse Ox 99.3 F 64 20 125/73 96 01/29/19 23:25 01/29/19 23:25 01/29/19 23:25 01/29/19 23:25 01/29/19 23:25 Intake and Output: 01/29/19 01/30/19 18:59 06:59 Intake Total 600 Output Total 800 Balance -200 - Medications Medications: Current Medications Acetaminophen (Tylenol 325mg Tab) 650 mg PO Q6 PRN PRN Reason: Pain, Mild (1-3) Last Admin: 01/27/19 15:01 Dose: 650 mg Enoxaparin Sodium (Lovenox) 40 mg SC DAILY [facility] Last Admin: 01/29/19 09:30 Dose: 40 mg Famotidine (Pepcid) 20 mg PO DAILY [facility] Last Admin: 01/29/19 10:27 Dose: 20 mg Fluticasone Propionate (Flonase) 0 spr VEAD DAILY PRN PRN Reason: Sinus symptoms Ketorolac Tromethamine (Toradol) 30 mg IV Q6 PRN PRN Reason: Pain, moderate (4-7) Last Admin: 01/27/19 09:19 Dose: 30 mg Meclizine HCl (Antivert) 25 mg PO Q6H PRN PRN Reason: Dizziness Last Admin: 01/29/19 20:16 Dose: 25 mg Ondansetron HCl (Zofran Inj) 4 mg IVP Q6H PRN PRN Reason: Nausea/Vomiting Last Admin: 01/29/19 09:26 Dose: 4 mg Tramadol HCl (Ultram) 50 mg PO ONCE PRN PRN Reason: Pain, moderate (4-7) Last Admin: 01/27/19 07:13 Dose: 50 mg - Labs Labs: 01/29/19 07:02 01/29/19 07:02 PT 13.2 SECONDS (9.7-12.2) H 01/27/19 06:52 INR 1.2 01/27/19 06:52 APTT 30.7 SECONDS (21-34) 01/27/19 06:52 - Constitutional Appears: Well, No Acute Distress - Head Exam Head Exam: ATRAUMATIC, NORMOCEPHALIC - Eye Exam Eye Exam: EOMI, Normal appearance - ENT Exam ENT Exam: Mucous Membranes Moist - Neck Exam Neck Exam: Full ROM, Normal Inspection - Respiratory Exam Respiratory Exam: Clear to Ausculation Bilateral, NORMAL BREATHING PATTERN. absent: Decreased Breath Sounds, Rales, Rhonchi, Wheezes, Respiratory Distress - Cardiovascular Exam Cardiovascular Exam: REGULAR RHYTHM, +S1, +S2 - GI/Abdominal Exam GI & Abdominal Exam: Soft, Normal Bowel Sounds. absent: Distended, Firm, Guarding, Rigid, Tenderness, Rebound - Extremities Exam Additional comments: right lower extremity splinted and bandaged, neurovascular intact, able to move toes - Neurological Exam Neurological Exam: Alert, Awake, CN II-XII Intact, Oriented x3 - Psychiatric Exam Psychiatric exam: Normal Affect, Normal Mood - Skin Skin Exam: Dry, Normal Color, Warm Assessment and Plan - Assessment and Plan (Free Text) Plan: Right Distal Fibular/Malleolar Fracture - Right Foot xray - possible bimalleolar fracture - CT w/o contrast - Multiple fractures within obliques displaced distal fibular fracture with roughly 6 millimeters of distraction between the fracture fragments. Additional mildly displaced medial malleolar oblique fracture. Posterior malleolus minimally displaced fracture. Associated extensive circumferential soft tissue swelling. The midfoot and forefoot appear intact. - Podiatry consulted - Dr. Baer - Patient declined surgical intervention - posterior foot splint to immobilize joint - Tylenol (mild), Toradol (moderate), and Percocet (severe) PRN for pain - PT/OT- recommend MANSI s/p Mechanical Fall - CXR: No infiltrates noted - Head CT w/o contrast - No intracranial mass, hemorrhage or evidence of acute infarct. Age related atrophy and chronic white matter ischemic change. 1st Degree Heart Block - ECHO shows EF 65-70%, mild MR/TR/pulmonary hypertension Vertigo - Chronic - patient has been evaluated by ENT previously - meclizine 25mg PO Q6H PRN dizziness PPX - GI PPX: Not indicated - DVT PPX: SCDs, Lovenox Disposition: Patient declined surgical intervention. PT recommends MANSI, placement pending. Alyssa Daugherty PGY-1
[2019-01-30 08:16] LABS: BASO # 0.1 K/uL (0.0-0.2); BASO % 0.7 % (0.0-2.0); EOS # 0.1 K/uL (0.0-0.7); EOS % 1.8 % (0.0-4.0); HEMOGLOBIN 11.1 g/dL (11.0-16.0); LYMPH # 1.3 K/uL (1.0-4.3); LYMPH % 18.6 % (20.0-40.0); MEAN CELL VOLUME 60.2 fL (81.0-99.0); MEAN CORPUSCULAR HEMOGLOBIN 19.7 pg (27.0-31.0); MEAN CORPUSCULAR HGB CONC 32.7 g/dL (33.0-37.0); MEAN PLATELET VOLUME 9.3 fL (7.2-11.7); MONO # 0.7 K/uL (0.0-0.8); MONO % 9.2 % (0.0-10.0); NEUT # 4.9 K/uL (1.8-7.0); NEUT % 69.7 % (50.0-75.0); NRBC % 0.1 % (0.0-2.0); RBC 5.62 Mil/uL (3.80-5.20); RED CELL DISTRIBUTION WIDTH 17.3 % (11.5-14.5); WHITE BLOOD COUNT 7.1 K/uL (4.8-10.8)
[2019-01-30 08:32] LABS: ALB/GLOB RATIO 1.5 (1.0-2.1); ALBUMIN 3.9 g/dL (3.5-5.0); ALT/SGPT 15 U/L (9-52); AST/SGOT 19 U/L (14-36); BLOOD UREA NITROGEN 12 mg/dL (7-17); CALCIUM 8.9 mg/dl (8.6-10.4); GFR NON-AFRICAN AMERICAN > 60
[2019-01-30] MEDS: Enoxaparin 40 mg Syringe SC SCH (09:12)
--- NOTE | 2019-01-30 09:50 | CARD ---
APPROVED REPORT Date of service: 01/26/2019 EKG Measurement Heart [id number] <Conclusion> Sinus rhythm with 1st degree AV block Otherwise normal ECG
[2019-01-30 14:45] LABS: SQUAMOUS EPITHIAL 1 /hpf (0-5); URINE BACTERIA RARE (<OCC); URINE BILIRUBIN NEGATIVE (NEGATIVE); URINE BLOOD 1+ (NEGATIVE); URINE CLARITY Clear (Clear); URINE COLOR Yellow (YELLOW); URINE GLUCOSE (UA) NORMAL (Normal); URINE LEUKOCYTE ESTERASE 1+ Leu/uL (Negative); URINE PROTEIN NEGATIVE (NEGATIVE); URINE UROBILINOGEN NORMAL mg/dL (0.2-1.0)
--- NOTE | 2019-01-31 00:26 | CP.PCM.PN ---
Subjective - Date & Time of Evaluation Date of Evaluation: 01/31/19 Time of Evaluation: 00:26 - Subjective Subjective: DR TOURE SERVICE Pt s/e at bedside, denies CP SOC FC NV, no acute complaints overnight endorsed from nursing Objective - Vital Signs/Intake and Output Vital Signs (last 24 hours): Temp Pulse Resp BP Pulse Ox 98.7 F 71 20 168/74 H 94 L 01/30/19 16:52 01/30/19 16:52 01/30/19 16:52 01/30/19 16:52 01/30/19 16:52 - Medications Medications: Current Medications Acetaminophen (Tylenol 325mg Tab) 650 mg PO Q6 PRN PRN Reason: Pain, Mild (1-3) Last Admin: 01/27/19 15:01 Dose: 650 mg Enoxaparin Sodium (Lovenox) 40 mg SC DAILY [facility] Last Admin: 01/30/19 09:12 Dose: 40 mg Famotidine (Pepcid) 20 mg PO DAILY [facility] Last Admin: 01/30/19 10:08 Dose: 20 mg Fluticasone Propionate (Flonase) 0 spr VEDA DAILY PRN PRN Reason: Sinus symptoms Ketorolac Tromethamine (Toradol) 15 mg IVP Q6 PRN PRN Reason: Pain, moderate (4-7) Meclizine HCl (Antivert) 25 mg PO Q6H PRN PRN Reason: Dizziness Last Admin: 01/30/19 09:12 Dose: 25 mg Ondansetron HCl (Zofran Inj) 4 mg IVP Q6H PRN PRN Reason: Nausea/Vomiting Last Admin: 01/30/19 05:47 Dose: 4 mg Tramadol HCl (Ultram) 50 mg PO ONCE PRN PRN Reason: Pain, moderate (4-7) Last Admin: 01/27/19 07:13 Dose: 50 mg - Labs Labs: 01/30/19 08:02 01/30/19 08:02 PT 13.2 SECONDS (9.7-12.2) H 01/27/19 06:52 INR 1.2 01/27/19 06:52 APTT 30.7 SECONDS (21-34) 01/27/19 06:52 - Additional Findings Additional findings: - Constitutional Appears: Well, No Acute Distress - Head Exam Head Exam: ATRAUMATIC, NORMOCEPHALIC - Eye Exam Eye Exam: EOMI, Normal appearance - ENT Exam ENT Exam: Mucous Membranes Moist - Neck Exam Neck Exam: Full ROM, Normal Inspection - Respiratory Exam Respiratory Exam: Clear to Ausculation Bilateral, NORMAL BREATHING PATTERN. absent: Decreased Breath Sounds, Rales, Rhonchi, Wheezes, Respiratory Distress - Cardiovascular Exam Cardiovascular Exam: REGULAR RHYTHM, +S1, +S2 - GI/Abdominal Exam GI & Abdominal Exam: Soft, Normal Bowel Sounds. absent: Distended, Firm, Guarding, Rigid, Tenderness, Rebound - Extremities Exam Additional comments: right lower extremity splinted and bandaged, neurovascular intact, able to move toes - Neurological Exam Neurological Exam: Alert, Awake, CN II-XII Intact, Oriented x3 - Psychiatric Exam Psychiatric exam: Normal Affect, Normal Mood - Skin Skin Exam: Dry, Normal Color, Warm Assessment and Plan - Assessment and Plan (Free Text) Plan: Right Distal Fibular/Malleolar Fracture - Right Foot xray - possible bimalleolar fracture - CT w/o contrast - Multiple fractures within obliques displaced distal fibular fracture with roughly 6 millimeters of distraction between the fracture fragments. Additional mildly displaced medial malleolar oblique fracture. Posterior malleolus minimally displaced fracture. Associated extensive cir cumferential soft tissue swelling. The midfoot and forefoot appear intact. - Podiatry consulted - Dr. Baer - Patient declined surgical intervention - posterior foot splint to immobilize joint - Tylenol (mild), Toradol (moderate), and Percocet (severe) PRN for pain - PT/OT- recommend MANSI s/p Mechanical Fall - CXR: No infiltrates noted - Head CT w/o contrast - No intracranial mass, hemorrhage or evidence of acute infarct. Age related atrophy and chronic white matter ischemic change. 1st Degree Heart Block - ECHO shows EF 65-70%, mild MR/TR/pulmonary hypertension Vertigo - Chronic - patient has been evaluated by ENT previously - meclizine 25mg PO Q6H PRN dizziness PPX - GI PPX: Not indicated - DVT PPX: SCDs, Lovenox Disposition: Patient declined surgical intervention. PT recommends MANSI, placement pending.
[2019-01-31] MEDS ORDERED: DiphenhydrAMINE 50 mg/ml Inj IVP STA (04:14)
[2019-01-31 07:19] LABS: BASO # 0.1 K/uL (0.0-0.2); BASO % 1.1 % (0.0-2.0); EOS % 0.3 % (0.0-4.0); HEMOGLOBIN 11.1 g/dL (11.0-16.0); LYMPH # 1.1 K/uL (1.0-4.3); LYMPH % 13.5 % (20.0-40.0); MEAN CELL VOLUME 59.8 fL (81.0-99.0); MEAN CORPUSCULAR HEMOGLOBIN 19.6 pg (27.0-31.0); MEAN CORPUSCULAR HGB CONC 32.8 g/dL (33.0-37.0); MONO # 0.8 K/uL (0.0-0.8); MONO % 9.2 % (0.0-10.0); NEUT # 6.2 K/uL (1.8-7.0); NEUT % 75.9 % (50.0-75.0); RBC 5.68 Mil/uL (3.80-5.20); WHITE BLOOD COUNT 8.2 K/uL (4.8-10.8)
[2019-01-31 07:39] LABS: ALB/GLOB RATIO 1.3 (1.0-2.1); ALBUMIN 3.8 g/dL (3.5-5.0); ALT/SGPT 19 U/L (9-52); AST/SGOT 22 U/L (14-36); BLOOD UREA NITROGEN 15 mg/dL (7-17); CALCIUM 9.2 mg/dl (8.6-10.4); GFR NON-AFRICAN AMERICAN > 60
[2019-01-31] MEDS: Enoxaparin 40 mg Syringe SC SCH (10:07)
--- NOTE | 2019-01-31 13:53 | CP.PCM.PN ---
Subjective - Date & Time of Evaluation Date of Evaluation: 01/31/19 Time of Evaluation: 13:50 - Subjective Subjective: Podiatry Progress Note- Dr. Baer 88 y/o female seen and evaluated at bedside for right displaced trimalleolar ankle fracture. Patient was doing a PT session at the visit time. As per her nurse she had an episode of nausea and vomiting yesterday. She states pain in ankle is well controlled now. She denies tingling, numbness or burning in the right lower extremities. She denies any overnight F/C/CP/SOB. Objective - Vital Signs/Intake and Output Vital Signs (last 24 hours): Temp Pulse Resp BP Pulse Ox 99.1 F 62 20 132/64 94 L 01/31/19 07:00 01/31/19 07:00 01/31/19 07:00 01/31/19 07:00 01/31/19 07:00 - Medications Medications: Current Medications Acetaminophen (Tylenol 325mg Tab) 650 mg PO Q6 PRN PRN Reason: Pain, Mild (1-3) Last Admin: 01/27/19 15:01 Dose: 650 mg Enoxaparin Sodium (Lovenox) 40 mg SC DAILY [facility] Last Admin: 01/31/19 10:07 Dose: 40 mg Famotidine (Pepcid) 20 mg PO DAILY [facility] Last Admin: 01/31/19 10:07 Dose: 20 mg Fluticasone Propionate (Flonase) 0 spr VEDA DAILY PRN PRN Reason: Sinus symptoms Ketorolac Tromethamine (Toradol) 15 mg IVP Q6 PRN PRN Reason: Pain, moderate (4-7) Meclizine HCl (Antivert) 25 mg PO Q6H PRN PRN Reason: Dizziness Last Admin: 01/31/19 13:32 Dose: 25 mg Ondansetron HCl (Zofran Inj) 4 mg IVP Q6H PRN PRN Reason: Nausea/Vomiting Last Admin: 01/31/19 10:07 Dose: 4 mg Tramadol HCl (Ultram) 50 mg PO ONCE PRN PRN Reason: Pain, moderate (4-7) Last Admin: 01/27/19 07:13 Dose: 50 mg - Labs Labs: 01/31/19 07:06 01/31/19 07:06 PT 13.2 SECONDS (9.7-12.2) H 01/27/19 06:52 INR 1.2 01/27/19 06:52 APTT 30.7 SECONDS (21-34) 01/27/19 06:52 - Constitutional Appears: Well, Non-toxic, No Acute Distress - Head Exam Head Exam: ATRAUMATIC, NORMOCEPHALIC - Extremities Exam Additional comments: RLE in posterior splint - clean, dry and intact Pt can wiggle toes without difficulty No strike through noted on dressings Capillary refill time < 3 sec to all digits Gross sensation intact - Neurological Exam Neurological Exam: Alert, Awake Assessment and Plan - Assessment and Plan (Free Text) Assessment: 88 y/o female seen and evaluated for right trimalleolar ankle fracture secondary to fall Plan: Patient seen and evaluated at bedside Discussed plan with Dr. Baer R ankle Xray and R lower extremity CT reveals displaced oblique fibula fracture, mildly displaced medial malleolar fracture, minimally displaced posterior malleolar fracture RLE in well padded posterior splint - to remain strictly NWB to RLE with walker Pt refusing surgery at this time, with concerns for undergoing anesthesia Recommend transfer to [facility], with scheduling of ORIF at a later date if patient is agreeable Physical therapy team on board for gait instability/management of NWB status with use of assistive device Pain management per primary team Podiatry will continue to follow up the patient while in house
[2019-02-01 07:53] LABS: BASO # 0.1 K/uL (0.0-0.2); BASO % 1.1 % (0.0-2.0); EOS # 0.2 K/uL (0.0-0.7); EOS % 3.8 % (0.0-4.0); HEMOGLOBIN 10.9 g/dL (11.0-16.0); LYMPH # 1.3 K/uL (1.0-4.3); LYMPH % 21.7 % (20.0-40.0); MEAN CELL VOLUME 59.5 fL (81.0-99.0); MEAN CORPUSCULAR HEMOGLOBIN 19.6 pg (27.0-31.0); MEAN PLATELET VOLUME 9.1 fL (7.2-11.7); MONO # 0.7 K/uL (0.0-0.8); MONO % 11.6 % (0.0-10.0); NEUT # 3.7 K/uL (1.8-7.0); NEUT % 61.8 % (50.0-75.0); NRBC % 0.1 % (0.0-2.0); RBC 5.55 Mil/uL (3.80-5.20); RED CELL DISTRIBUTION WIDTH 17.2 % (11.5-14.5); WHITE BLOOD COUNT 5.9 K/uL (4.8-10.8)
[2019-02-01 08:00] LABS: ALB/GLOB RATIO 1.3 (1.0-2.1); ALBUMIN 3.7 g/dL (3.5-5.0); ALT/SGPT 16 U/L (9-52); AST/SGOT 25 U/L (14-36); BLOOD UREA NITROGEN 19 mg/dL (7-17); CALCIUM 8.8 mg/dl (8.6-10.4); GFR NON-AFRICAN AMERICAN > 60
[2019-02-01] MEDS: Enoxaparin 40 mg Syringe SC SCH (09:34)
--- NOTE | 2019-02-01 13:10 | CP.PCM.PN ---
Subjective - Date & Time of Evaluation Date of Evaluation: 02/01/19 Time of Evaluation: 12:00 - Subjective Subjective: Podiatry Progress Note- Dr. Baer 88 y/o female seen and evaluated at bedside for right displaced trimalleolar ankle fracture. Patient is seen resting in a chair with posterior splint intact. Patient reports that she wants surgical intervention for right ankle fracture. Patient reports that she is nervous however has changed her mind and wants surgical intervention. Reports that she is a and wants to be able to walk and take care of herself. Pain denies of pain at the moment. Denies calf pain. Reports sleeping okay. Reports has been working with physical therapy to move around with a walker to remain nonweigghtbearing to the right leg. She denies tingling, numbness or burning in the right lower extremities. She denies any overnight F/C/CP/SOB. Objective - Vital Signs/Intake and Output Vital Signs (last 24 hours): Temp Pulse Resp BP Pulse Ox 98.3 F 59 L 20 127/67 96 02/01/19 07:00 02/01/19 07:00 02/01/19 07:00 02/01/19 07:00 02/01/19 07:00 - Medications Medications: Current Medications Acetaminophen (Tylenol 325mg Tab) 650 mg PO Q6 PRN PRN Reason: Pain, Mild (1-3) Last Admin: 01/27/19 15:01 Dose: 650 mg Enoxaparin Sodium (Lovenox) 40 mg SC DAILY [facility] Last Admin: 02/01/19 09:34 Dose: 40 mg Famotidine (Pepcid) 20 mg PO DAILY [facility] Last Admin: 02/01/19 09:33 Dose: 20 mg Fluticasone Propionate (Flonase) 0 spr VEDA DAILY PRN PRN Reason: Sinus symptoms Ketorolac Tromethamine (Toradol) 15 mg IVP Q6 PRN PRN Reason: Pain, moderate (4-7) Last Admin: 01/31/19 21:28 Dose: 15 mg Meclizine HCl (Antivert) 25 mg PO Q6H PRN PRN Reason: Dizziness Last Admin: 01/31/19 21:28 Dose: 25 mg Ondansetron HCl (Zofran Inj) 4 mg IVP Q6H PRN PRN Reason: Nausea/Vomiting Last Admin: 01/31/19 10:07 Dose: 4 mg Tramadol HCl (Ultram) 50 mg PO ONCE PRN PRN Reason: Pain, moderate (4-7) Last Admin: 01/27/19 07:13 Dose: 50 mg - Labs Labs: 02/01/19 07:39 02/01/19 07:33 PT 13.2 SECONDS (9.7-12.2) H 01/27/19 06:52 INR 1.2 01/27/19 06:52 APTT 30.7 SECONDS (21-34) 01/27/19 06:52 - Constitutional Appears: Well, Non-toxic, No Acute Distress - Extremities Exam Extremities Exam: absent: Calf Tenderness Additional comments: RLE in posterior splint - clean, dry and intact No strike through noted on dressings Gross sensation intact Pt can wiggle toes without difficulty Capillary refill time < 3 sec to all digits No pain or tenderness with calf squeeze Pain with palpation to medial and lateral malleolus - Neurological Exam Neurological Exam: Alert, Awake, Oriented x3 - Psychiatric Exam Psychiatric exam: Normal Affect, Normal Mood Assessment and Plan - Assessment and Plan (Free Text) Assessment: 88 y/o female seen and evaluated for right trimalleolar ankle fracture secondary to fall Plan: Patient seen and evaluated at bedside Discussed plan with Dr. Baer R ankle Xray and R lower extremity CT reveals displaced oblique fibula fracture, mildly displaced medial malleolar fracture, minimally displaced posterior malleolar fracture RLE in well padded posterior splint - to remain strictly NWB to RLE with walker After consideration of benefits, risks, complications and alternative, patient now request for surgical intervention. Podiatry will proceed with surgical intervention of right trimalleolar fracture open reduction internal fixation Patient to go to the operative room tomorrow Thursday, February 02 at 3PM pending medical clearance Please provide medical clearance, thank you NPO after midnight [facility] Physical therapy team on board for gait instability/management of NWB status with use of assistive device Pain management per primary team Podiatry will continue to follow up the patient while in house
--- NOTE | 2019-02-01 15:30 | CP.PCM.PN ---
Subjective - Date & Time of Evaluation Date of Evaluation: 02/01/19 Time of Evaluation: 08:00 - Subjective Subjective: Progress note for Dr. Haney. Patient seen and examined at bedside. Patient has no complaints at this time. She Has decided to go through with surgery. Denies fevers, chills, chest pain, shortness of breath, abdominal pain. Objective - Vital Signs/Intake and Output Vital Signs (last 24 hours): Temp Pulse Resp BP Pulse Ox 98.3 F 59 L 20 127/67 96 02/01/19 07:00 02/01/19 07:00 02/01/19 07:00 02/01/19 07:00 02/01/19 07:00 - Medications Medications: Current Medications Acetaminophen (Tylenol 325mg Tab) 650 mg PO Q6 PRN PRN Reason: Pain, Mild (1-3) Last Admin: 01/27/19 15:01 Dose: 650 mg Enoxaparin Sodium (Lovenox) 40 mg SC DAILY [facility] Last Admin: 02/01/19 09:34 Dose: 40 mg Famotidine (Pepcid) 20 mg PO DAILY [facility] Last Admin: 02/01/19 09:33 Dose: 20 mg Fluticasone Propionate (Flonase) 0 spr VEDA DAILY PRN PRN Reason: Sinus symptoms Meclizine HCl (Antivert) 25 mg PO Q6H PRN PRN Reason: Dizziness Last Admin: 01/31/19 21:28 Dose: 25 mg Ondansetron HCl (Zofran Inj) 4 mg IVP Q6H PRN PRN Reason: Nausea/Vomiting Last Admin: 01/31/19 10:07 Dose: 4 mg Tramadol HCl (Ultram) 50 mg PO ONCE PRN PRN Reason: Pain, moderate (4-7) Last Admin: 01/27/19 07:13 Dose: 50 mg - Labs Labs: 02/01/19 07:39 02/01/19 07:33 PT 13.2 SECONDS (9.7-12.2) H 01/27/19 06:52 INR 1.2 01/27/19 06:52 APTT 30.7 SECONDS (21-34) 01/27/19 06:52 - Additional Findings Additional findings: - Constitutional Appears: Non-toxic, No Acute Distress - Head Exam Head Exam: ATRAUMATIC, NORMOCEPHALIC - Eye Exam Eye Exam: EOMI, Normal appearance, PERRL - ENT Exam ENT Exam: Mucous Membranes Moist - Neck Exam Neck Exam: Full ROM, Normal Inspection - Respiratory Exam Respiratory Exam: Clear to Ausculation Bilateral, NORMAL BREATHING PATTERN. absent: Decreased Breath Sounds, Rales, Rhonchi, Wheezes, Respiratory Distress - Cardiovascular Exam Cardiovascular Exam: REGULAR RHYTHM, +S1, +S2 - GI/Abdominal Exam GI & Abdominal Exam: Soft, Normal Bowel Sounds. absent: Distended, Firm, Guarding, Rigid, Tenderness, Rebound - Extremities Exam Additional comments: right lower extremity splinted and bandaged, neurovascular intact, able to move toes - Neurological Exam Neurological Exam: Alert, Awake, CN II-XII Intact, Oriented x3 - Psychiatric Exam Psychiatric exam: Normal Affect, Normal Mood - Skin Skin Exam: Dry, Normal Color, Warm Assessment and Plan - Assessment and Plan (Free Text) Plan: 88 year old female with PMhx of vertigo with R distal fibular/malleolar fx Right Distal Fibular/Malleolar Fracture - Right Foot xray - possible bimalleolar fracture - CT w/o contrast - Multiple fractures within obliques displaced distal fibular fracture with roughly 6 millimeters of distraction between the fracture fragments. Additional mildly displaced medial malleolar oblique fracture. Posterior malleolus minimally displaced fracture. Associated extensive circumferential soft tissue swelling. The midfoot and forefoot appear intact. - Podiatry consulted - Dr. Baer - posterior foot splint to immobilize joint - Tylenol (mild), Toradol (moderate), and Percocet (severe) PRN for pain - PT/OT- recommend MANSI s/p Mechanical Fall - CXR: No infiltrates noted - Head CT w/o contrast - No intracranial mass, hemorrhage or evidence of acute infarct. Age related atrophy and chronic white matter ischemic change. 1st Degree Heart Block - ECHO shows EF 65-70%, mild MR/TR/pulmonary hypertension Vertigo - Chronic - patient has been evaluated by ENT previously - meclizine 25mg PO Q6H PRN dizziness PPX - GI PPX: Not indicated - DVT PPX: SCDs, Lovenox- held for possible surgery Disposition: Patient has now agreed to surgical intervention. Cardiology, Dr. Wu consulted for cardiac clearance. F/u cardio. Patient scheduled for R malleolus ORIF 3pm 02/02/19. NPO after midnight.
--- NOTE | 2019-02-01 22:07 | CP.PCM.CON ---
History of Present Illness - History of Present Illness History of Present Illness: CC: Pre Op Cardiac risk assessment This is an 88 year old female with PMHx of Vertigo who presents to the ED s/p mechanical fall. Patient states after getting ready this morning, she started to feel dizzy and lightheaded. She fell onto her buttocks, leaning more towards her right side. Denied LOC, syncope, or hitting her head. She was able to crawl to her front door and yell for help. Total time on the floor was less than 10-15 minutes as neighbors came right away to help and placed her in a chair. The ambulance was called shortly after. She admits to right ankle pain, worse with movement. ROS unremarkable otherwise. Patient is apprehensive about the surgery but wants to discuss with her sister in law and brother first before making a decision. 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 Patient lives alone in apartment complex. Ambulates without assistance, can perform all ADLs. p assed away years ago, no children. Brother and sister live in [place]. FHx: Mother: hypertension, at the age of 88 Father: in his 80s, patient unaware of what PMD: Mahsa (last seen 2 years ago) Present on Admission - Present on Admission Any Indicators Present on Admission: No Meds Allergies/Adverse Reactions: Allergies Allergy/AdvReac Type Severity Reaction Status Date / Time No Known Allergies Allergy Verified 01/26/19 13:28 Physical Exam - Constitutional Appears: No Acute Distress - Head Exam Head Exam: NORMAL INSPECTION, NORMOCEPHALIC - Eye Exam Eye Exam: EOMI, Normal appearance, PERRL Pupil Exam: NORMAL ACCOMODATION - ENT Exam ENT Exam: Mucous Membranes Moist, Normal Exam - Respiratory Exam Respiratory Exam: Clear to Auscultation Bilateral, NORMAL BREATHING PATTERN. absent: Decreased Breath Sounds, Rales, Rhonchi, Wheezes - Cardiovascular Exam Cardiovascular Exam: REGULAR RHYTHM, RRR. absent: Tachycardia, Diastolic murmur, JVD, Systolic Murmur - GI/Abdominal Exam GI & Abdominal Exam: Normal Bowel Sounds, Soft. absent: Distended, Tenderness - Extremities Exam Extremities exam: Positive for: pedal pulses present Additional comments: right lower extremity in posterior splint pulses intact, warm to touch - Neurological Exam Neurological exam: Alert, Oriented x3 - Psychiatric Exam Psychiatric exam: Normal Affect, Normal Mood - Skin Skin Exam: Dry, Intact, Normal Color, Warm Assessment & Plan - Assessment and Plan (Free Text) Plan: Right Distal Fibular Fracture Right Malleolar Fracture S/P Mechanical Fall -- Ortho consulted - Dr. Baer Patient for stress test in am Past Patient History - Infectious Disease Hx of Infectious Diseases: None - Past Medical History & Family History Past Medical History?: Yes - Past Social History Smoking Status: Never Smoked - NEUROLOGICAL Hx Vertigo: Yes - HEMATOLOGICAL/ONCOLOGICAL Hx Anemia: Yes - MUSCULOSKELETAL/RHEUMATOLOGICAL Hx Falls: Yes (this admission, ankle fracture) - PSYCHIATRIC Hx Substance Use: No - SURGICAL HISTORY Hx Appendectomy: Yes - ANESTHESIA Hx Anesthesia: Yes Hx Anesthesia Reactions: No Hx Malignant Hyperthermia: No Meds Allergies/Adverse Reactions: Allergies Allergy/AdvReac Type Severity Reaction Status Date / Time No Known Allergies Allergy Verified 01/26/19 13:28 - Medications Medications: Current Medications Acetaminophen (Tylenol 325mg Tab) 650 mg PO Q6 PRN PRN Reason: Pain, Mild (1-3) Last Admin: 01/27/19 15:01 Dose: 650 mg Enoxaparin Sodium (Lovenox) 40 mg SC DAILY [facility] Last Admin: 02/01/19 09:34 Dose: 40 mg Famotidine (Pepcid) 20 mg PO DAILY [facility] Last Admin: 02/01/19 09:33 Dose: 20 mg Fluticasone Propionate (Flonase) 0 spr VEDA DAILY PRN PRN Reason: Sinus symptoms Sodium Chloride (Sodium Chloride 0.9%) 1,000 mls @ 100 mls/hr IV .Q10H [facility] Meclizine HCl (Antivert) 25 mg PO Q6H PRN PRN Reason: Dizziness Last Admin: 01/31/19 21:28 Dose: 25 mg Ondansetron HCl (Zofran Inj) 4 mg IVP Q6H PRN PRN Reason: Nausea/Vomiting Last Admin: 01/31/19 10:07 Dose: 4 mg Tramadol HCl (Ultram) 50 mg PO ONCE PRN PRN Reason: Pain, moderate (4-7) Last Admin: 01/27/19 07:13 Dose: 50 mg Results - Vital Signs Recent Vital Signs: Last Vital Signs Temp 97.9 F 02/01/19 15:00 Pulse 58 L 02/01/19 15:00 Resp 20 02/01/19 15:00 BP 146/76 02/01/19 15:00 Pulse Ox 94 L 02/01/19 15:00 - Labs Result Diagrams: 02/01/19 07:39 02/01/19 07:33 Labs: Laboratory Results - last 24 hr 02/01/19 02/01/19 07:33 07:39 WBC 5.9 RBC 5.55 H Hgb 10.9 L Hct 33.0 L MCV 59.5 L MCH 19.6 L MCHC 33.0 RDW 17.2 H Plt Count 273 MPV 9.1 Neut % (Auto) 61.8 Lymph % (Auto) 21.7 [place] % (Auto) 11.6 H Eos % (Auto) 3.8 Baso % (Auto) 1.1 Neut # (Auto) 3.7 Lymph # (Auto) 1.3 [place] # (Auto) 0.7 Eos # (Auto) 0.2 Baso # (Auto) 0.1 Sodium 135 Potassium 3.7 Chloride 100 Carbon Dioxide 25 Anion Gap 14 BUN 19 H Creatinine 0.5 L Est GFR ( Amer) > 60 Est GFR (Non-Af Amer) > 60 Random Glucose 88 Calcium 8.8 Total Bilirubin 1.2 AST 25 ALT 16 Alkaline Phosphatase 57 Total Protein 6.5 Albumin 3.7 Globulin 2.8 Albumin/Globulin Ratio 1.3
--- NOTE | 2019-02-02 07:24 | CP.PCM.PN ---
Subjective - Date & Time of Evaluation Date of Evaluation: 02/02/19 Time of Evaluation: 07:22 - Subjective Subjective: Resident Progress Note for Dr. Haney No acute events overnight. Patient s/p stress test today and scheduled for ORIF with podiatry at 3pm. As per cardio patient intermediate risk for surgery. Denies fevers, chills, nausea, vomiting, chest pain, shortness of breath, abdominal pain. Objective - Vital Signs/Intake and Output Vital Signs (last 24 hours): Temp Pulse Resp BP Pulse Ox 98.9 F 66 20 126/75 95 02/01/19 23:05 02/01/19 23:05 02/01/19 23:05 02/01/19 23:05 02/01/19 23:05 Intake and Output: 02/02/19 02/02/19 06:59 18:59 Intake Total 480 Balance 480 - Medications Medications: Current Medications Acetaminophen (Tylenol 325mg Tab) 650 mg PO Q6 PRN PRN Reason: Pain, Mild (1-3) Last Admin: 01/27/19 15:01 Dose: 650 mg Enoxaparin Sodium (Lovenox) 40 mg SC DAILY [facility] Last Admin: 02/01/19 09:34 Dose: 40 mg Famotidine (Pepcid) 20 mg PO DAILY [facility] Last Admin: 02/01/19 09:33 Dose: 20 mg Fluticasone Propionate (Flonase) 0 spr VEDA DAILY PRN PRN Reason: Sinus symptoms Sodium Chloride (Sodium Chloride 0.9%) 1,000 mls @ 100 mls/hr IV .Q10H [facility] Meclizine HCl (Antivert) 25 mg PO Q6H PRN PRN Reason: Dizziness Last Admin: 01/31/19 21:28 Dose: 25 mg Ondansetron HCl (Zofran Inj) 4 mg IVP Q6H PRN PRN Reason: Nausea/Vomiting Last Admin: 01/31/19 10:07 Dose: 4 mg Tramadol HCl (Ultram) 50 mg PO ONCE PRN PRN Reason: Pain, moderate (4-7) Last Admin: 01/27/19 07:13 Dose: 50 mg - Labs Labs: 02/01/19 07:39 02/01/19 07:33 PT 13.2 SECONDS (9.7-12.2) H 01/27/19 06:52 INR 1.2 01/27/19 06:52 APTT 30.7 SECONDS (21-34) 01/27/19 06:52 - Constitutional Appears: Non-toxic, No Acute Distress - Head Exam Head Exam: ATRAUMATIC, NORMOCEPHALIC - Eye Exam Eye Exam: EOMI, Normal appearance, PERRL - ENT Exam ENT Exam: Mucous Membranes Moist - Neck Exam Neck Exam: Full ROM, Normal Inspection - Respiratory Exam Respiratory Exam: Clear to Ausculation Bilateral, NORMAL BREATHING PATTERN. absent: Decreased Breath Sounds, Rales, Rhonchi, Wheezes, Respiratory Distress - Cardiovascular Exam Cardiovascular Exam: REGULAR RHYTHM, +S1, +S2 - GI/Abdominal Exam GI & Abdominal Exam: Soft, Normal Bowel Sounds. absent: Distended, Firm, Guarding, Rigid, Tenderness, Rebound - Extremities Exam Additional comments: right lower extremity splinted and bandaged, neurovascular intact, able to move toes - Neurological Exam Neurological Exam: Alert, Awake, CN II-XII Intact, Oriented x3 - Psychiatric Exam Psychiatric exam: Normal Affect, Normal Mood - Skin Skin Exam: Dry, Normal Color, Warm Assessment and Plan - Assessment and Plan (Free Text) Assessment: 88 year old female with PMhx of vertigo with R distal fibular/malleolar fx Plan: Right Distal Fibular/Malleolar Fracture - Right Foot xray - possible bimalleolar fracture - CT w/o contrast - Multiple fractures within obliques displaced distal fibular fracture with roughly 6 millimeters of distraction between the fracture fragments. Additional mildly displaced medial malleolar oblique fracture. Posterior malleolus minimally displaced fracture. Associated extensive circumferential soft tissue swelling. The midfoot and forefoot appear intact. - Podiatry consulted - Dr. Baer - posterior foot splint to immobilize joint - Tylenol (mild), Toradol (moderate), and Percocet (severe) PRN for pain - PT/OT- recommend MANSI s/p Mechanical Fall - CXR: No infiltrates noted - Head CT w/o contrast - No intracranial mass, hemorrhage or evidence of acute infarct. Age related atrophy and chronic white matter ischemic change. 1st Degree Heart Block - ECHO shows EF 65-70%, mild MR/TR/pulmonary hypertension Vertigo - Chronic - patient has been evaluated by ENT previously - meclizine 25mg PO Q6H PRN dizziness PPX - GI PPX: Not indicated - DVT PPX: SCDs, Lovenox- held for possible surgery Disposition: Patient scheduled for R malleolus ORIF 3pm 02/02/[address] Medina Daugherty PGY-1
[2019-02-02 07:56] LABS: BASO # 0.1 K/uL (0.0-0.2); BASO % 0.9 % (0.0-2.0); EOS # 0.2 K/uL (0.0-0.7); EOS % 3.2 % (0.0-4.0); HEMOGLOBIN 11.5 g/dL (11.0-16.0); LYMPH % 14.7 % (20.0-40.0); MEAN CELL VOLUME 59.8 fL (81.0-99.0); MEAN CORPUSCULAR HEMOGLOBIN 19.6 pg (27.0-31.0); MEAN CORPUSCULAR HGB CONC 32.7 g/dL (33.0-37.0); MEAN PLATELET VOLUME 9.1 fL (7.2-11.7); MONO # 0.6 K/uL (0.0-0.8); MONO % 9.2 % (0.0-10.0); NEUT # 4.7 K/uL (1.8-7.0); NRBC % 0.4 % (0.0-2.0); RBC 5.9 Mil/uL (3.80-5.20); RED CELL DISTRIBUTION WIDTH 17.1 % (11.5-14.5); WHITE BLOOD COUNT 6.6 K/uL (4.8-10.8)
[2019-02-02] MEDS: Sodium Chloride 0.9% 1,000 ML IV SCH ×3 (08:00→20:00)
[2019-02-02] MEDS ORDERED: Caffeine Citrated **INJ** 20 MG/ML IV ONE (08:01)
[2019-02-02 08:12] LABS: ALB/GLOB RATIO 1.4 (1.0-2.1); ALBUMIN 3.9 g/dL (3.5-5.0); ALT/SGPT 15 U/L (9-52); AST/SGOT 25 U/L (14-36); BLOOD UREA NITROGEN 14 mg/dL (7-17); CALCIUM 8.7 mg/dl (8.6-10.4); GFR NON-AFRICAN AMERICAN > 60
--- NOTE | 2019-02-02 13:31 | CP.PCM.PN ---
<Grady Serna - Last Filed: 02/02/19 13:14> Subjective - Date & Time of Evaluation Date of Evaluation: 02/02/19 Time of Evaluation: 13:14 - Subjective Subjective: PGY2 Cardiology Note for Dr. Wu Nuclear stress test images reviewed by Dr. Wu. Due to age and hypertension, patient is an intermediate risk for ankle surgery under general anaesthesia. Recommend to proceed with the surgery if the benefit outweighs the risk. Objective - Vital Signs/Intake and Output Vital Signs (last 24 hours): Temp Pulse Resp BP Pulse Ox 98.9 F 66 20 126/75 95 02/01/19 23:05 02/01/19 23:05 02/01/19 23:05 02/01/19 23:05 02/01/19 23:05 Intake and Output: 02/02/19 02/02/19 06:59 18:59 Intake Total 480 Balance 480 - Medications Medications: Current Medications Acetaminophen (Tylenol 325mg Tab) 650 mg PO Q6 PRN PRN Reason: Pain, Mild (1-3) Last Admin: 01/27/19 15:01 Dose: 650 mg Enoxaparin Sodium (Lovenox) 40 mg SC DAILY [facility] Last Admin: 02/01/19 09:34 Dose: 40 mg Famotidine (Pepcid) 20 mg PO DAILY [facility] Last Admin: 02/01/19 09:33 Dose: 20 mg Fluticasone Propionate (Flonase) 0 spr VEDA DAILY PRN PRN Reason: Sinus symptoms Sodium Chloride (Sodium Chloride 0.9%) 1,000 mls @ 100 mls/hr IV .Q10H [facility] Meclizine HCl (Antivert) 25 mg PO Q6H PRN PRN Reason: Dizziness Last Admin: 01/31/19 21:28 Dose: 25 mg Ondansetron HCl (Zofran Inj) 4 mg IVP Q6H PRN PRN Reason: Nausea/Vomiting Last Admin: 01/31/19 10:07 Dose: 4 mg Tramadol HCl (Ultram) 50 mg PO ONCE PRN PRN Reason: Pain, moderate (4-7) Last Admin: 01/27/19 07:13 Dose: 50 mg - Labs Labs: 02/02/19 07:50 02/02/19 07:50 PT 13.2 SECONDS (9.7-12.2) H 01/27/19 06:52 INR 1.2 01/27/19 06:52 APTT 30.7 SECONDS (21-34) 01/27/19 06:52 <Adalid Wu - Last Filed: 02/02/19 22:26> Subjective - Subjective Subjective: Patient seen and evaluated Denies chest pain and dyspnea Normal stress test and normal EF Physical Exam - Constitutional Appears: No Acute Distress - Head Exam Head Exam: NORMAL INSPECTION, NORMOCEPHALIC - Eye Exam Eye Exam: EOMI, Normal appearance, PERRL Pupil Exam: NORMAL ACCOMODATION - ENT Exam ENT Exam: Mucous Membranes Moist, Normal Exam - Respiratory Exam Respiratory Exam: Clear to Auscultation Bilateral, NORMAL BREATHING PATTERN. absent: Decreased Breath Sounds, Rales, Rhonchi, Wheezes - Cardiovascular Exam Cardiovascular Exam: REGULAR RHYTHM, RRR. absent: Tachycardia, Diastolic murmur, JVD, Systolic Murmur - GI/Abdominal Exam GI & Abdominal Exam: Normal Bowel Sounds, Soft. absent: Distended, Tenderness - Extremities Exam Extremities exam: Positive for: pedal pulses present Additional comments: right lower extremity in posterior splint pulses intact, warm to touch - Neurological Exam Neurological exam: Alert, Oriented x3 - Psychiatric Exam Psychiatric exam: Normal Affect, Normal Mood - Skin Skin Exam: Dry, Intact, Normal Color, Warm Objective - Vital Signs/Intake and Output Vital Signs (last 24 hours): Temp Pulse Resp BP Pulse Ox 97.5 F L 67 18 154/71 H 95 02/02/19 20:31 02/02/19 20:31 02/02/19 20:31 02/02/19 20:31 02/02/19 20:31 Intake and Output: 02/02/19 02/03/19 18:59 06:59 Intake Total 1000 Balance 1000 - Medications Medications: Current Medications Acetaminophen (Tylenol 325mg Tab) 650 mg PO Q6 PRN PRN Reason: Pain, Mild (1-3) Last Admin: 01/27/19 15:01 Dose: 650 mg Enoxaparin Sodium (Lovenox) 40 mg SC DAILY [facility] Last Admin: 02/01/19 09:34 Dose: 40 mg Famotidine (Pepcid) 20 mg PO DAILY [facility] Last Admin: 02/02/19 10:00 Dose: Not Given Fluticasone Propionate (Flonase) 0 spr VEDA DAILY PRN PRN Reason: Sinus symptoms Sodium Chloride (Sodium Chloride 0.9%) 1,000 mls @ 100 mls/hr IV .Q10H [facility] Last Admin: 02/02/19 20:00 Dose: 0 mls Cefazolin Sodium 500 mg/ (Sodium Chloride) 50 mls @ 100 mls/hr IVPB Q8H [facility]; Protocol Stop: 02/03/19 08:29 Meclizine HCl (Antivert) 25 mg PO Q6H PRN PRN Reason: Dizziness Last Admin: 01/31/19 21:28 Dose: 25 mg Ondansetron HCl (Zofran Inj) 4 mg IVP Q6H PRN PRN Reason: Nausea/Vomiting Last Admin: 01/31/19 10:07 Dose: 4 mg Oxycodone/Acetaminophen (Percocet 5/325 Mg Tab) 1 tab PO Q4H PRN PRN Reason: Pain, moderate (4-7) Stop: 02/05/19 18:29 Tramadol HCl (Ultram) 50 mg PO ONCE PRN PRN Reason: Pain, moderate (4-7) Last Admin: 01/27/19 07:13 Dose: 50 mg - Labs Labs: 02/02/19 07:50 02/02/19 07:50 PT 13.2 SECONDS (9.7-12.2) H 01/27/19 06:52 INR 1.2 01/27/19 06:52 APTT 30.7 SECONDS (21-34) 01/27/19 06:52
[2019-02-02] MEDS ORDERED: ceFAZolin 1 gm in NS 1 GM/100 ML BAG IVPB ONE ×2 (15:02→18:02)
[2019-02-02] MEDS ORDERED: Lidocaine 2% MPF (5 ml) Inj ONE (15:02)
[2019-02-02] MEDS ORDERED: Bupivacaine HCl 0.25% PF (10 ml) Inj ONE ×2 (15:03→19:36)
--- NOTE | 2019-02-02 15:21 | CP.PCM.PN ---
Subjective - Date & Time of Evaluation Date of Evaluation: 02/02/19 Time of Evaluation: 14:00 - Subjective Subjective: Podiatry Progress Note- Dr. Baer 88 y/o female seen and evaluated at bedside for right displaced trimalleolar ankle fracture. Patient is seen resting in bed. Patient understands she will undergo surgical intervention of right ankle fracture with Dr. Baer. Patient reports she just underwent testing. Reports nothing to eat or drink since midnight. Reports feeling a little nervous. She denies any overnight F/C/CP/SOB. Objective - Vital Signs/Intake and Output Vital Signs (last 24 hours): Temp Pulse Resp BP Pulse Ox 98.9 F 66 20 126/75 95 02/01/19 23:05 02/01/19 23:05 02/01/19 23:05 02/01/19 23:05 02/01/19 23:05 Intake and Output: 02/02/19 02/02/19 06:59 18:59 Intake Total 480 Balance 480 - Medications Medications: Current Medications Acetaminophen (Tylenol 325mg Tab) 650 mg PO Q6 PRN PRN Reason: Pain, Mild (1-3) Last Admin: 01/27/19 15:01 Dose: 650 mg Enoxaparin Sodium (Lovenox) 40 mg SC DAILY [facility] Last Admin: 02/01/19 09:34 Dose: 40 mg Famotidine (Pepcid) 20 mg PO DAILY [facility] Last Admin: 02/02/19 10:00 Dose: Not Given Fluticasone Propionate (Flonase) 0 spr VEDA DAILY PRN PRN Reason: Sinus symptoms Sodium Chloride (Sodium Chloride 0.9%) 1,000 mls @ 100 mls/hr IV .Q10H [facility] Last Admin: 02/02/19 12:30 Dose: 100 mls/hr Meclizine HCl (Antivert) 25 mg PO Q6H PRN PRN Reason: Dizziness Last Admin: 01/31/19 21:28 Dose: 25 mg Ondansetron HCl (Zofran Inj) 4 mg IVP Q6H PRN PRN Reason: Nausea/Vomiting Last Admin: 01/31/19 10:07 Dose: 4 mg Tramadol HCl (Ultram) 50 mg PO ONCE PRN PRN Reason: Pain, moderate (4-7) Last Admin: 01/27/19 07:13 Dose: 50 mg - Labs Labs: 02/02/19 07:50 02/02/19 07:50 PT 13.2 SECONDS (9.7-12.2) H 01/27/19 06:52 INR 1.2 01/27/19 06:52 APTT 30.7 SECONDS (21-34) 01/27/19 06:52 - Constitutional Appears: Well, Non-toxic, No Acute Distress - Extremities Exam Extremities Exam: absent: Calf Tenderness Additional comments: RLE in posterior splint - clean, dry and intact No strike through noted on dressings Gross sensation intact Pt can wiggle toes without difficulty Capillary refill time < 3 sec to all digits No pain or tenderness with calf squeeze Pain with palpation to medial and lateral malleolus Assessment and Plan - Assessment and Plan (Free Text) Assessment: 88 y/o female seen and evaluated for right trimalleolar ankle fracture secondary to fall Plan: Patient seen and evaluated at bedside Discussed plan with Dr. Baer NPO status confirmed R ankle Xray and R lower extremity CT reveals displaced oblique fibula fracture, mildly displaced medial malleolar fracture, minimally displaced posterior malleolar fracture RLE in well padded posterior splint - to remain strictly NWB to RLE with walker After consideration of benefits, risks, complications and alternative, patient now request for surgical intervention. Podiatry will proceed with surgical intervention of right trimalleolar fracture open reduction internal fixation NPO status confirmed Per cardiology " Due to age and hypertension, patient is an intermediate risk for ankle surgery under general anaesthesia. Recommend to proceed with the surgery if the benefit outweighs the risk. " Podiatry will proceed with surgery Physical therapy team on board for gait instability/management of NWB status with use of assistive device Pain management per primary team Podiatry will continue to follow up the patient while in house
[2019-02-02] MEDS ORDERED: Propofol 10 mg/ml Inj (20 ML) ONE (15:49)
[2019-02-02] MEDS ORDERED: Neostigmine 1:1000 (1 mg/ml) Inj ONE (18:11)
--- NOTE | 2019-02-02 18:27 | PCM.SURG1 ---
Surgeon's Initial Post Op Note - Surgeon's Notes Surgeon: Dr. Baer Product Blending Supervisor: Dr. Mee Luciano, PGY-3, Dr. Meggan Woodard, PGY-3; Dr. Tank Whitt, PGY-2 Type of Anesthesia: General Endo Anesthesia Administered By: Dr. Tavarez Pre-Operative Diagnosis: closed displaced trimalleolar fracture right ankle Operative Findings: see operative note Post-Operative Diagnosis: same Operation Performed: open reduction and internal fixation of closed displaced trimalleolar fracture of right ankle using plates and screws Specimen/Specimens Removed: none Estimated Blood Loss: EBL {In ML}: 10 Blood Products Given: N/A Drains Used: No Drains Post-Op Condition: Good Date of Surgery/Procedure: 02/02/19 Time of Surgery/Procedure: 16:00
[2019-02-02] MEDS ORDERED: Oxycodone/Acetaminophen 5/325 mg Tab PO PRN (18:28)
[2019-02-02] MEDS: HYDROmorphone 0.5 mg/0.5 ml ISec IVP PRN ×2 (18:48→19:08)
[2019-02-03 01:14] VITALS: RESP 20
[2019-02-03 07:23] LABS: BASO % 0.3 % (0.0-2.0); EOS % 0.3 % (0.0-4.0); HEMOGLOBIN 10.8 g/dL (11.0-16.0); LYMPH # 0.8 K/uL (1.0-4.3); LYMPH % 8.6 % (20.0-40.0); MEAN CELL VOLUME 59.5 fL (81.0-99.0); MEAN CORPUSCULAR HEMOGLOBIN 19.6 pg (27.0-31.0); MEAN CORPUSCULAR HGB CONC 32.9 g/dL (33.0-37.0); MEAN PLATELET VOLUME 9.3 fL (7.2-11.7); MONO # 0.9 K/uL (0.0-0.8); MONO % 9.6 % (0.0-10.0); NEUT % 81.2 % (50.0-75.0); PLATELET COUNT 271 K/uL (130-400); RBC 5.51 Mil/uL (3.80-5.20); RED CELL DISTRIBUTION WIDTH 17.1 % (11.5-14.5); WHITE BLOOD COUNT 9.8 K/uL (4.8-10.8)
[2019-02-03 07:49] LABS: ALB/GLOB RATIO 1.4 (1.0-2.1); ALBUMIN 3.5 g/dL (3.5-5.0); ALT/SGPT 24 U/L (9-52); AST/SGOT 23 U/L (14-36); BLOOD UREA NITROGEN 11 mg/dL (7-17); CALCIUM 8.1 mg/dl (8.6-10.4); GFR NON-AFRICAN AMERICAN > 60
[2019-02-03 08:32] LABS: ANISOCYTOSIS SLIGHT; LYMPHOCYTE 8 % (20-40); MONOCYTE 1 % (0-10); NEUTROPHIL 91 % (50-75); PLATELET ESTIMATE NORMAL (NORMAL); TOTAL CELLS COUNTED 100
[2019-02-03 08:33] LABS: HYPOCHROMIC MODERATE; MICROCYTOSIS SLIGHT; POLYCHROMIC SLIGHT
[2019-02-03 08:34] LABS: OVALOCYTES MODERATE
--- NOTE | 2019-02-03 08:46 | CP.PCM.PN ---
Subjective - Date & Time of Evaluation Date of Evaluation: 02/03/19 Time of Evaluation: 07:00 - Subjective Subjective: Progress note for Dr. Haney. Patient S&E. POD #1 s/p open reduction and internal fixation of closed displaced trimalleolar fracture of right ankle using plates and screws. Complains of mild nausea. Denies fever, chills, vomtiing, abominal pain, chest pain and SOB. Objective - Vital Signs/Intake and Output Vital Signs (last 24 hours): Temp Pulse Resp BP Pulse Ox 98.0 F 68 20 148/76 95 02/03/19 08:01 02/03/19 08:01 02/03/19 08:01 02/03/19 08:01 02/03/19 08:01 - Medications Medications: Current Medications Acetaminophen (Tylenol 325mg Tab) 650 mg PO Q6 PRN PRN Reason: Pain, Mild (1-3) Last Admin: 01/27/19 15:01 Dose: 650 mg Enoxaparin Sodium (Lovenox) 40 mg SC DAILY [facility] Last Admin: 02/01/19 09:34 Dose: 40 mg Famotidine (Pepcid) 20 mg PO DAILY [facility] Last Admin: 02/02/19 10:00 Dose: Not Given Fluticasone Propionate (Flonase) 0 spr VEDA DAILY PRN PRN Reason: Sinus symptoms Sodium Chloride (Sodium Chloride 0.9%) 1,000 mls @ 100 mls/hr IV .Q10H [facility] Last Admin: 02/02/19 20:00 Dose: 0 mls Meclizine HCl (Antivert) 25 mg PO Q6H PRN PRN Reason: Dizziness Last Admin: 01/31/19 21:28 Dose: 25 mg Ondansetron HCl (Zofran Inj) 4 mg IVP Q6H PRN PRN Reason: Nausea/Vomiting Last Admin: 01/31/19 10:07 Dose: 4 mg Oxycodone/Acetaminophen (Percocet 5/325 Mg Tab) 1 tab PO Q4H PRN PRN Reason: Pain, moderate (4-7) Stop: 02/05/19 18:29 Tramadol HCl (Ultram) 50 mg PO ONCE PRN PRN Reason: Pain, moderate (4-7) Last Admin: 01/27/19 07:13 Dose: 50 mg - Labs Labs: 02/03/19 07:03 02/03/19 07:03 PT 13.2 SECONDS (9.7-12.2) H 01/27/19 06:52 INR 1.2 01/27/19 06:52 APTT 30.7 SECONDS (21-34) 01/27/19 06:52 - Additional Findings Additional findings: - Constitutional Appears: Non-toxic, No Acute Distress - Head Exam Head Exam: ATRAUMATIC, NORMOCEPHALIC - Eye Exam Eye Exam: EOMI, Normal appearance, PERRL - ENT Exam ENT Exam: Mucous Membranes Moist - Neck Exam Neck Exam: Full ROM, Normal Inspection - Respiratory Exam Respiratory Exam: Clear to Ausculation Bilateral, NORMAL BREATHING PATTERN. absent: Decreased Breath Sounds, Rales, Rhonchi, Wheezes, Respiratory Distress - Cardiovascular Exam Cardiovascular Exam: REGULAR RHYTHM, +S1, +S2 - GI/Abdominal Exam GI & Abdominal Exam: Soft, Normal Bowel Sounds. absent: Distended, Firm, Guarding, Rigid, Tenderness, Rebound - Extremities Exam Additional comments: right lower extremity splinted and bandaged, neurovascular intact, able to move toes - Neurological Exam Neurological Exam: Alert, Awake, CN II-XII Intact, Oriented x3 - Psychiatric Exam Psychiatric exam: Normal Affect, Normal Mood - Skin Skin Exam: Dry, Normal Color, Warm Assessment and Plan - Assessment and Plan (Free Text) Plan: 88 year old female with PMhx of vertigo with R distal fibular/malleolar fx Plan: Right Distal Fibular/Malleolar Fracture - Right Foot xray - possible bimalleolar fracture - CT w/o contrast - Multiple fractures within obliques displaced distal fibular fracture with roughly 6 millimeters of distraction between the fracture fragments. Additional mildly displaced medial malleolar oblique fracture. Posterior malleolus minimally displaced fracture. Associated extensive circumferential soft tissue swelling. The midfoot and forefoot appear intact. - Podiatry consulted - Dr. Baer - posterior foot splint to immobilize joint - Tylenol (mild), Toradol (moderate), and Percocet (severe) PRN for pain - PT/OT- recommend MANSI s/p Mechanical Fall - CXR: No infiltrates noted - Head CT w/o contrast - No intracranial mass, hemorrhage or evidence of acute infarct. Age related atrophy and chronic white matter ischemic change. 1st Degree Heart Block - ECHO shows EF 65-70%, mild MR/TR/pulmonary hypertension Vertigo - Chronic - patient has been evaluated by ENT previously - meclizine 25mg PO Q6H PRN dizziness PPX - GI PPX: Not indicated - DVT PPX: SCDs, Lovenox- held for possible surgery Disposition: Patient scheduled for R malleolus ORIF 3pm 02/02/19
--- NOTE | 2019-02-03 08:56 | CARD ---
APPROVED REPORT Date of service: 02/02/2019 Protocol: LEXISCAN Test Type: LEXISCAN STRESS Test Indications: PRE OP Medical History: CP Target HR: 132 bpm Resting ECG: NSR W/ FREQUENT APB'S, NS ST T CHANGES DIFFUSELY Resting Heart Rate: 75 bpm Resting Blood Pressure: 128/80mmHg submaximum (85%): 112 bpm TEST SUMMARY [id number]:01..1.0./.0. PREINFSNHYPERV.12:[id number]/80.0. INFUSIONDOSE 100:300.00.01.071/.0. [id number]/80.0. PROCEDURE Pharmacologic stress testing was performed using 0.4mg per 5ml of regadenoson given intravenously over 7-10 seconds. POST EXERCISE Reason for Termination: Protocol Completed Target HR: No Max HR: 71 bpm 77% of Maximum Predicted HR: 132 bpm Exercise duration: 00:30 min:sec, 0 Stage Exercise capacity: 1.0METs Max Blood Pressure: 130/80mmHg Blood Pressure response to exercise: normal resting BP - appropriate response Heart Rate response to exercise: appropriate Chest Pain: No, none Angina index: 0 Arrhythmia: No, none ST Change: No, none Deviation: 0 mm INTERPRETATION Stress EKG Conclusion: NEGATIVE LEXISCAN STRESS TEST OCC APB'S, RARE VPB'S NORMAL BP RESPONSE TO LEXISCAN NUCLEAR STUDIES TO BE READ SEPARATELY EXAM: Myocardial Perfusion STRESS/REST Imaging Protocol The imaging protocol used to acquire images was Stress Tc-99m/rest Tc-99m 1 day Rest Spect myocardial perfusion imaging was performed in supine position 45 minutes following the injection of 32.5 mCi of Tc-99 Myoview. Gated Stress Spect was performed 45 minutes after intravenous 13.0 mCi Tc-99 Myoview injection. The images were gated to evaluate regional wall motion and calculate ventricular ejection fraction.Images were reconstructed using backfilter projection method in short horizontal and verticle long axis. Spect slices were generated. RESTING DATA EDV53.45eqCQ3.00L/min ESV10.00mlMyocardial Mass86.00g Av. Heart Rate70.00bpm EF81.00% STRESS DATA EDV55.63syBD9.20L/min ESV12.00mlMyocardial Mass93.00g EF78.00% Regional WT score at stress:0.00 Regional WM score at stress:0.00 Summed WT score at stress:2.00 Av. Heart Rate72.00bpmSummed WM score at stress:3.00 LV Perf. Quant 17 Seg. SSS0.00 17 Seg. SRS0.00 17 Seg. SDS0.00 Stress Defect Extent (% LAD)0.00Rest Defect Extent (% LAD)0.00Rev. Defect Extent (% LAD)0.00 Stress Defect Extent (% LCX)0.00Rest Defect Extent (% LCX)0.00Rev. Defect Extent (% LCX)0.00 Stress Defect Extent (% RCA)0.00Rest Defect Extent (% RCA)0.00Rev. Defect Extent (% RCA)0.00 Stress Defect Extent (% MICHELLE)0.00Rest Defect Extent (% MICHELLE)0.00Rev. Defect Extent (% MICHELLE)0.00 Other Information Quality:Good IMPRESSION Normal Myocardial Perfusion exercise stress study Left Ventricle LV Function:Left ventricle systolic function is normal. The Ejection Fraction is 65-70%. Metabolism/Perfusion There are no perfusion/metabolism defects. Conclusion 1. Normal Lexiscan Nuclear Stress Test. Normal EF
--- NOTE | 2019-02-03 12:04 | CP.PCM.PN ---
Subjective - Date & Time of Evaluation Date of Evaluation: 02/03/19 Time of Evaluation: 10:30 - Subjective Subjective: Podiatry Progress Note- Dr. Baer 88 y/o female seen and evaluated 1 day s/p right ankle fracture open reduction internal fixation. Patient is seen resting in bed, in NAD. Patient was seen enjoying breakfast. Patient reports sleeping well. Denies acute overnight events. Denies pain to the lower extremity. Reports feeling stiffness in the legs. Denies nausea, fever, shortness of breath, or chest pains. Dressing is clean, dry and intact. No other pedal complaints at this time. Objective - Vital Signs/Intake and Output Vital Signs (last 24 hours): Temp Pulse Resp BP Pulse Ox 98.0 F 68 20 148/76 95 02/03/19 08:01 02/03/19 08:01 02/03/19 08:01 02/03/19 08:01 02/03/19 08:01 - Medications Medications: Current Medications Acetaminophen (Tylenol 325mg Tab) 650 mg PO Q6 PRN PRN Reason: Pain, Mild (1-3) Last Admin: 01/27/19 15:01 Dose: 650 mg Enoxaparin Sodium (Lovenox) 40 mg SC DAILY [facility] Last Admin: 02/01/19 09:34 Dose: 40 mg Famotidine (Pepcid) 20 mg PO DAILY [facility] Last Admin: 02/03/19 11:02 Dose: 20 mg Fluticasone Propionate (Flonase) 0 spr VEDA DAILY PRN PRN Reason: Sinus symptoms Sodium Chloride (Sodium Chloride 0.9%) 1,000 mls @ 100 mls/hr IV .Q10H [facility] Last Admin: 02/02/19 20:00 Dose: 0 mls Meclizine HCl (Antivert) 25 mg PO Q6H PRN PRN Reason: Dizziness Last Admin: 01/31/19 21:28 Dose: 25 mg Ondansetron HCl (Zofran Inj) 4 mg IVP Q6H PRN PRN Reason: Nausea/Vomiting Last Admin: 01/31/19 10:07 Dose: 4 mg Oxycodone/Acetaminophen (Percocet 5/325 Mg Tab) 1 tab PO Q4H PRN PRN Reason: Pain, moderate (4-7) Stop: 02/05/19 18:29 Tramadol HCl (Ultram) 50 mg PO ONCE PRN PRN Reason: Pain, moderate (4-7) Last Admin: 01/27/19 07:13 Dose: 50 mg - Labs Labs: 02/03/19 07:03 02/03/19 07:03 PT 13.2 SECONDS (9.7-12.2) H 01/27/19 06:52 INR 1.2 01/27/19 06:52 APTT 30.7 SECONDS (21-34) 01/27/19 06:52 - Constitutional Appears: Well, Non-toxic, No Acute Distress - Extremities Exam Extremities Exam: absent: Calf Tenderness Additional comments: Posterior splint c/d/i without strikethrough Temperature WNL CFT < 3 seconds x 5 digits No calf pain or tenderness Active ROM 1-5 present Assessment and Plan - Assessment and Plan (Free Text) Assessment: 88 y/o female seen and evaluated 1 day s/p right ankle fracture open reduction internal fixation. Plan: Patient seen and examined Discussed plan in detail with attending Dr. Baer Labs, chart reviewed Patient continue to remain NWB with walker Physical therapy team on board for gait instability/management of NWB status with use of assistive device Continue RICE protocol Pain management per primary team Podiatry will continue to follow up the patient while in house Stable per podiatry standpoint Patient to start 10 days of Lovenox SC RICE protocol Keep dressing clean, dry, and intact. Do not get wet OTC pain medication for pain control F/U with Dr. Baer in his office
--- NOTE | 2019-02-03 15:44 | CP.PCM.DIS ---
Provider - Provider Date of Admission: 01/26/19 16:10 Attending physician: Castillo Haney Jr, MD Consults: 01/26/19 14:32 Podiatry Consult Stat Comment: Consulting Provider: Jamin Baer Consulting Physician: Jamin Baer Reason for Consult: s/p fall, trauma RT ankle/foot 02/01/19 16:57 Cardiology Consult Routine Comment: Consulting Provider: Adalid Wu Consulting Physician: Adalid Wu Reason for Consult: cardiac clearance pre-op Time Spent in preparation of Discharge (in minutes): 35 Diagnosis - Discharge Diagnosis (1) Vertigo Status: Acute (2) Bimalleolar fracture of right ankle Status: Acute Hospital Course - Lab Results Lab Results: Most Recent Lab Values WBC 9.8 K/uL (4.8-10.8) 02/03/19 07:03 RBC 5.51 Mil/uL (3.80-5.20) H 02/03/19 07:03 Hgb 10.8 g/dL (11.0-16.0) L 02/03/19 07:03 Hct 32.8 % (34.0-47.0) L 02/03/19 07:03 MCV 59.5 fL (81.0-99.0) L 02/03/19 07:03 MCH 19.6 pg (27.0-31.0) L 02/03/19 07:03 MCHC 32.9 g/dL (33.0-37.0) L 02/03/19 07:03 RDW 17.1 % (11.5-14.5) H 02/03/19 07:03 Plt Count 271 K/uL (130-400) 02/03/19 07:03 MPV 9.3 fL (7.2-11.7) 02/03/19 07:03 Neut % (Auto) 81.2 % (50.0-75.0) H 02/03/19 07:03 Lymph % (Auto) 8.6 % (20.0-40.0) L 02/03/19 07:03 [place] % (Auto) 9.6 % (0.0-10.0) 02/03/19 07:03 Eos % (Auto) 0.3 % (0.0-4.0) 02/03/19 07:03 Baso % (Auto) 0.3 % (0.0-2.0) 02/03/19 07:03 Neut # (Auto) 8.0 K/uL (1.8-7.0) H 02/03/19 07:03 Lymph # (Auto) 0.8 K/uL (1.0-4.3) L 02/03/19 07:03 [place] # (Auto) 0.9 K/uL (0.0-0.8) H 02/03/19 07:03 Eos # (Auto) 0.0 K/uL (0.0-0.7) 02/03/19 07:03 Baso # (Auto) 0.0 K/uL (0.0-0.2) 02/03/19 07:03 Neutrophils % (Manual) 91 % (50-75) H 02/03/19 07:03 Lymphocytes % (Manual) 8 % (20-40) L 02/03/19 07:03 Monocytes % (Manual) 1 % (0-10) 02/03/19 07:03 Differential Comment 01/26/19 15:02 Platelet Estimate Normal (NORMAL) 02/03/19 07:03 Polychromasia Slight 02/03/19 07:03 Hypochromasia (manual) Moderate 02/03/19 07:03 Anisocytosis (manual) Slight 02/03/19 07:03 Microcytosis (manual) Slight 02/03/19 07:03 Ovalocytes Moderate 02/03/19 07:03 PT 13.2 SECONDS (9.7-12.2) H 01/27/19 06:52 INR 1.2 01/27/19 06:52 APTT 30.7 SECONDS (21-34) 01/27/19 06:52 Sodium 133 mmol/L (132-148) 02/03/19 07:03 Potassium 3.7 mmol/L (3.6-5.2) 02/03/19 07:03 Chloride 101 mmol/L (98-107) 02/03/19 07:03 Carbon Dioxide 22 mmol/L (22-30) 02/03/19 07:03 Anion Gap 13 (10-20) 02/03/19 07:03 BUN 11 mg/dL (7-17) 02/03/19 07:03 Creatinine 0.4 mg/dL (0.7-1.2) L 02/03/19 07:03 Est GFR ( Amer) > 60 02/03/19 07:03 Est GFR (Non-Af Amer) > 60 02/03/19 07:03 POC Glucose (mg/dL) 114 mg/dL (65-110) H 01/30/19 13:35 Random Glucose 118 mg/dL (65-105) H 02/03/19 07:03 Hemoglobin A1c 6.3 % (4.2-6.5) 01/27/19 06:52 Calcium 8.1 mg/dl (8.6-10.4) L 02/03/19 07:03 Phosphorus 3.6 mg/dL (2.5-4.5) 01/31/19 07:06 Magnesium 2.1 mg/dL (1.6-2.3) 01/31/19 07:06 Total Bilirubin 0.9 mg/dL (0.2-1.3) 02/03/19 07:03 AST 23 U/L (14-36) 02/03/19 07:03 ALT 24 U/L (9-52) 02/03/19 07:03 Alkaline Phosphatase 66 U/L (38-126) 02/03/19 07:03 Total Creatine Kinase 41 U/L (30-135) 01/27/19 06:52 CK-MB (Mass) 0.42 ng/mL (0.0-3.38) 01/27/19 06:52 Troponin I < 0.0120 ng/mL (0.00-0.120) 01/27/19 06:52 Total Protein 6.1 g/dL (6.3-8.3) L 02/03/19 07:03 Albumin 3.5 g/dL (3.5-5.0) 02/03/19 07:03 Globulin 2.6 gm/dL (2.2-3.9) 02/03/19 07:03 Albumin/Globulin Ratio 1.4 (1.0-2.1) 02/03/19 07:03 Triglycerides 73 mg/dL (0-149) 01/27/19 06:52 Cholesterol 162 mg/dL (0-199) 01/27/19 06:52 LDL Cholesterol Direct 84 mg/dL (0-129) 01/27/19 06:52 HDL Cholesterol 71 mg/dL (30-70) H 01/27/19 06:52 Free T4 0.89 ng/dL (0.78-2.19) 01/27/19 06:52 TSH 3rd Generation 0.86 mIU/L (0.46-4.68) 01/27/19 06:52 Urine Color Yellow (YELLOW) 01/30/19 14:24 Urine Clarity Clear (Clear) 01/30/19 14:24 Urine pH 6.0 (5.0-8.0) 01/30/19 14:24 Ur Specific [place] 1.006 (1.003-1.030) 01/30/19 14:24 Urine Protein Negative mg/dL (NEGATIVE) 01/30/19 14:24 Urine Glucose (UA) Normal mg/dL (Normal) 01/30/19 14:24 Urine Ketones Trace mg/dL (NEGATIVE) 01/30/19 14:24 Urine Blood 1+ (NEGATIVE) H 01/30/19 14:24 Urine Nitrate Negative (NEGATIVE) 01/30/19 14:24 Urine Bilirubin Negative (NEGATIVE) 01/30/19 14:24 Urine Urobilinogen Normal mg/dL (0.2-1.0) 01/30/19 14:24 Ur Leukocyte Esterase 1+ Bianca/uL (Negative) H 01/30/19 14:24 Urine WBC (Auto) 4 /hpf (0-5) 01/30/19 14:24 Urine RBC (Auto) 3 /hpf (0-3) 01/30/19 14:24 Ur Squamous Epith Cells 1 /hpf (0-5) 01/30/19 14:24 Urine Bacteria Rare (<OCC) 01/30/19 14:24 Blood Type O POSITIVE 01/27/19 06:52 Antibody Screen Negative 01/27/19 06:52 - Hospital Course Hospital Course: On admission: This is an 88 year old female with PMHx of Vertigo who presents to the ED s/p mechanical fall. Patient states after getting ready this morning, she started to feel dizzy and lightheaded. She fell onto her buttocks, leaning more towards her right side. Denied LOC, syncope, or hitting her head. She was able to crawl to her front door and yell for help. Total time on the floor was less than 10-15 minutes as neighbors came right away to help and placed her in a chair. The ambulance was called shortly after. She admits to right ankle pain, worse with movement. ROS unremarkable otherwise. Patient is apprehensive about the surgery but wants to discuss with her sister in law and brother first before making a decision. Hospitalization: 88 year old female with PMhx of vertigo with R distal fibular/malleolar fx Plan: Right Distal Fibular/Malleolar Fracture - Right Foot xray - possible bimalleolar fracture - CT w/o contrast - Multiple fractures within obliques displaced distal fibular fracture with roughly 6 millimeters of distraction between the fracture fragments. Additional mildly displaced medial malleolar oblique fracture. Posterior malleolus minimally displaced fracture. Associated extensive circumferential soft tissue swelling. The midfoot and forefoot appear intact. - Podiatry consulted - Dr. Baer - posterior foot splint to immobilize joint - Tylenol (mild), Toradol (moderate), and Percocet (severe) PRN for pain - PT/OT- recommend MANSI s/p Mechanical Fall - CXR: No infiltrates noted - Head CT w/o contrast - No intracranial mass, hemorrhage or evidence of acute infarct. Age related atrophy and chronic white matter ischemic change. 1st Degree Heart Block - ECHO shows EF 65-70%, mild MR/TR/pulmonary hypertension Vertigo - Chronic - patient has been evaluated by ENT previously - meclizine 25mg PO Q6H PRN dizziness PPX - GI PPX: Not indicated - DVT PPX: SCDs, Lovenox- held for possible surgery Disposition: Patient scheduled for R malleolus ORIF 3pm 02/02/19 Patient S&E. POD #1 s/p open reduction and internal fixation of closed displaced trimalleolar fracture of right ankle using plates and screws. Complains of mild nausea. Denies fever, chills, vomtiing, abominal pain, chest pain and SOB. Discharge: Patient is stable for discharge as per Dr. Haney and Dr. Baer. Patient is to Follow up with Dr. Baer in the office within one week of discharge. You will need to continue Lovenox 40mg SC daily for at least 10 days. You should remain non weight bearing on the R side with a walking. Keep your dressing clean and dry, it must not get wet. Return to the ED for new or worsening symptoms. Discharge Exam - Head Exam Head Exam: ATRAUMATIC, NORMOCEPHALIC - Additional Findings Additional findings: - Constitutional Appears: Non-toxic, No Acute Distress - Head Exam Head Exam: ATRAUMATIC, NORMOCEPHALIC - Eye Exam Eye Exam: EOMI, Normal appearance, PERRL - ENT Exam ENT Exam: Mucous Membranes Moist - Neck Exam Neck Exam: Full ROM, Normal Inspection - Respiratory Exam Respiratory Exam: Clear to Ausculation Bilateral, NORMAL BREATHING PATTERN. absent: Decreased Breath Sounds, Rales, Rhonchi, Wheezes, Respiratory Distress - Cardiovascular Exam Cardiovascular Exam: REGULAR RHYTHM, +S1, +S2 - GI/Abdominal Exam GI & Abdominal Exam: Soft, Normal Bowel Sounds. absent: Distended, Firm, Guarding, Rigid, Tenderness, Rebound - Extremities Exam Additional comments: right lower extremity splinted and bandaged, neurovascular intact, able to move toes - Neurological Exam Neurological Exam: Alert, Awake, CN II-XII Intact, Oriented x3 - Psychiatric Exam Psychiatric exam: Normal Affect, Normal Mood - Skin Skin Exam: Dry, Normal Color, Warm Discharge Plan - Follow Up Plan Condition: STABLE Disposition: REHAB FACILITY/REHAB UNIT Instructions: Ankle Fracture (DC), Dizziness, Nonvertigo, (DC), Open Reduction and Internal Fixation Surgery (DC), Managing Pain After Surgery Additional Instructions: Patient is stable for discharge as per Dr. Haney and Dr. Baer. Patient is to Follow up with Dr. Baer in the office within one week of discharge. You will need to continue Lovenox 40mg SC daily for at least 10 days. You should remain non weight bearing on the R side with a walking. Keep your dressing clean and dry, it must not get wet. Return to the ED for new or worsening symptoms. Referrals: Jamin Baer MD [Staff Provider] -
--- NOTE | 2019-02-03 15:46 | OP ---
PROCEDURE DATE: 02/02/2019 SURGEON: Jamin Baer DPM ASSISTANTS: Mary Luciano DPM, PGY-3; Angela Woodard DPM, PGY-2; Dr. Jaun Whitt DPM, PGY-2 ANESTHESIA ADMINISTERED BY: Dr. Tavarez. TYPE OF ANESTHESIA: General. PREOPERATIVE DIAGNOSIS: Closed, displaced trimalleolar fracture of right ankle. POSTOPERATIVE DIAGNOSIS: Closed, displaced trimalleolar fracture of right ankle. PROCEDURE PERFORMED: Open reduction with internal fixation of trimalleolar fracture of right ankle using plate and screw fixation. INDICATION: The patient is an 88-year-old female with the above-mentioned diagnosis. Of note, one week prior, the patient was ambulating and suffered a fall subsequently suffering a closed, displaced trimalleolar fracture of the right ankle. The patient has been in the hospital following the incident awaiting surgery at this time. The patient has exhausted all conservative treatment at this time and now requires surgical intervention. The patient signed the consent after careful explanation of all risks, benefits, complications and alternatives for surgical procedures. No guarantees were given nor implied. Ancef 2 g IV was given to the patient prior to the procedure. N.p.o. status was confirmed prior to taking the patient into the operating room. PREPARATION: The patient was brought to the operating room and placed on the operating room table in a supine position. A well-padded pneumatic thigh tourniquet was placed to the patient's right thigh with plenty of Webril cast padding. An Esmarch bandage was utilized to exsanguinate the patient's right lower extremity. The pneumatic thigh tourniquet was then inflated to 360 mmHg and the procedure began. DESCRIPTION OF PROCEDURE: Open reduction with internal fixation of a trimalleolar fracture of right ankle using plate and screw fixation. Our attention was now directed to the lateral aspect of the patient's right ankle overlying the distal fibula and approximately 10 cm linear longitudinal incision directly overlying malleolus extending proximally. Care was taken to avoid all vital neurovascular structures. All bleeders were cauterized as necessary during dissection. Once the periosteal tissue was encountered, a sharp linear incision down to bone was then created directly over the distal fibula. A freer elevator was then utilized to reflect the periosteal tissue medially and laterally, thus exposing the distal fibula and the spiral fracture in question. The surgical site was then flushed with copious amounts of sterile normal saline on irrigation. The proximal spike of the distal fibular fracture was then exposed. Traction was applied to the distal fibula and a bone reduction clamp was utilized to reduce the distal fibular fracture fragment into anatomic alignment, thus restoring length and position of the distal fibula. Next, utilizing standard AO principles and techniques, a Synthes 3.5 x 24 mm cortical screw was then inserted in its place perpendicular to the fracture fragment with excellent compression achieved. Next, a Synthes 5-hole LCP distal fibular plate was then chosen and then placed on the lateral aspect of the distal fibula. Intraoperative fluoroscopy was utilized to assess adequate positioning of the plate at this time. Next, using a standard AO principles and techniques, a 3.5 x 14 mm cortical screw was then placed into the third most proximal hole of the plate with excellent position of the [id number] interphase appreciated at this time. Next, various 2.7 cm locking screws were then inserted into the distal aspect of the plate, five in total were placed to the distal fibula and lastly two 3.5 x 12 mm locking screws were then placed into the two most proximal locking holes of the plate. At this time, the fibular fracture appear to be anatomically reduced with excellent position of the [id number] interphase appreciated. The surgical site was then flushed with copious amounts of sterile normal saline solution. The periosteal tissue was reapproximate using 2-0 and 3-0 Vicryl. The subcutaneous tissue was reapproximate using 4-0 Vicryl and the skin edges reapproximate using 4-0 Monocryl suture in a running pattern. Meanwhile, our attention was then directed to the medial malleolus of the patient's right ankle and approximately 4 cm linear longitudinal incisions was made directly over the medial malleolus of the patient's right ankle. Care was taken to avoid all vital neurovascular structures during dissection. All bleeders were cauterized as necessary. Next, the fracture fragment in question of the medial malleolus was encountered and a 1.6 mm K-wire was then inserted from the distal tip of the medial malleolus and going proximal laterally into the shaft of the distal tibia. Intraoperative fluoroscopy was utilized to ensure adequate alignment of the K-wire and the fracture fragment appeared to be anatomically reduced at this juncture. Using standard AO principles and techniques, a 4.0 x 50 mm cannulated screw with a 7-mm washer was then inserted in this place across the medial malleolar fracture with excellent compression and anatomic reduction achieved. The K-wire was then removed. The surgical site was flushed with copious amounts of sterile normal saline solution. The subcutaneous tissue was reapproximated using 3-0 and 4-0 Vicryl and the skin edges reapproximate using 4-0 Monocryl suture in a running suture technique. Final postoperative x-rays were now taken with excellent anatomic reduction of the ankle and yarsanism of the ankle mortis noted at this time. Next, 10 mL of Marcaine 0.25% plain was then introduced in the saphenous distribution of the right ankle. The surgical site was then dressed with Steri-Strips, saline, moist gauze, 4x4s, Pema, Kerlix and a well-padded posterior splint to the patient's foot left in a neural position to the leg was then placed with the patient's right lower extremity. POSTOPERATIVE CONDITION: The patient tolerated the anesthesia and the procedure well and was escorted to the recovery room with vital signs stable and neurovascular status intact to the patient's right lower extremity. The patient will be kept in-house overnight. The patient will be assessed by physical therapy. The patient will be strictly nonweightbearing to the right lower extremity. The patient will then follow up with Dr. Baer as an outpatient and while the patient is in-house Podiatry will follow the patient. Mary Luciano DPM Jamin Baer DPM
[2019-02-03 16:19] VITALS: BP 152/71; PULSE 69; TEMP 98.5; O2SAT 98
--- NOTE | 2019-02-03 16:23 | CP.PCM.PN ---
<Grady Serna - Last Filed: 02/03/19 16:20> Subjective - Date & Time of Evaluation Date of Evaluation: 02/03/19 Time of Evaluation: 16:20 - Subjective Subjective: PGY2 Cardiology Note for Dr. Wu Patient seen and examined this morning at bedside. She is resting comfortably in bed. She reports feeling well without any complaints. Denies any chest pain. Objective - Vital Signs/Intake and Output Vital Signs (last 24 hours): Temp Pulse Resp BP Pulse Ox 98.5 F 69 20 152/71 H 98 02/03/19 15:00 02/03/19 15:00 02/03/19 15:00 02/03/19 15:00 02/03/19 15:00 - Medications Medications: Current Medications Acetaminophen (Tylenol 325mg Tab) 650 mg PO Q6 PRN PRN Reason: Pain, Mild (1-3) Last Admin: 01/27/19 15:01 Dose: 650 mg Enoxaparin Sodium (Lovenox) 40 mg SC DAILY [facility] Last Admin: 02/01/19 09:34 Dose: 40 mg Famotidine (Pepcid) 20 mg PO DAILY [facility] Last Admin: 02/03/19 11:02 Dose: 20 mg Fluticasone Propionate (Flonase) 0 spr VEDA DAILY PRN PRN Reason: Sinus symptoms Sodium Chloride (Sodium Chloride 0.9%) 1,000 mls @ 100 mls/hr IV .Q10H [facility] Last Admin: 02/02/19 20:00 Dose: 0 mls Meclizine HCl (Antivert) 25 mg PO Q6H PRN PRN Reason: Dizziness Last Admin: 01/31/19 21:28 Dose: 25 mg Ondansetron HCl (Zofran Inj) 4 mg IVP Q6H PRN PRN Reason: Nausea/Vomiting Last Admin: 01/31/19 10:07 Dose: 4 mg Oxycodone/Acetaminophen (Percocet 5/325 Mg Tab) 1 tab PO Q4H PRN PRN Reason: Pain, moderate (4-7) Stop: 02/05/19 18:29 Tramadol HCl (Ultram) 50 mg PO ONCE PRN PRN Reason: Pain, moderate (4-7) Last Admin: 01/27/19 07:13 Dose: 50 mg - Labs Labs: 02/03/19 07:03 05/30/19 07:03 PT 13.2 SECONDS (9.7-12.2) H 01/27/19 06:52 INR 1.2 01/27/19 06:52 APTT 30.7 SECONDS (21-34) 01/27/19 06:52 - Additional Findings Additional findings: - Constitutional Appears: No Acute Distress - Head Exam Head Exam: NORMAL INSPECTION, NORMOCEPHALIC - Eye Exam Eye Exam: EOMI, Normal appearance, PERRL Pupil Exam: NORMAL ACCOMODATION - ENT Exam ENT Exam: Mucous Membranes Moist, Normal Exam - Respiratory Exam Respiratory Exam: Clear to Auscultation Bilateral, NORMAL BREATHING PATTERN. ab sent: Decreased Breath Sounds, Rales, Rhonchi, Wheezes - Cardiovascular Exam Cardiovascular Exam: REGULAR RHYTHM, RRR. absent: Tachycardia, Diastolic murmur, JVD, Systolic Murmur - GI/Abdominal Exam GI & Abdominal Exam: Normal Bowel Sounds, Soft. absent: Distended, Tenderness - Extremities Exam Additional comments: right lower extremity dressing in place - Neurological Exam Neurological exam: Alert, Oriented x3 - Psychiatric Exam Psychiatric exam: Normal Affect, Normal Mood - Skin Skin Exam: Dry, Intact, Normal Color, Warm Assessment and Plan - Assessment and Plan (Free Text) Plan: Right Trimalleolar ankle fracture 2/2 to fall s/p ORIF POD#[address] Baer patient tolerated procedure well No cardiac events No further cardiac work-up needed Please re-consult as needed Case discussed with Dr. Bryce Serna PGY2 <Adalid Wu - Last Filed: 02/03/19 22:24> Objective - Vital Signs/Intake and Output Vital Signs (last 24 hours): Temp Pulse Resp BP Pulse Ox 98.5 F 69 20 152/71 H 98 02/03/19 15:00 02/03/19 15:00 02/03/19 15:00 02/03/19 15:00 02/03/19 15:00 Intake and Output: 02/03/19 02/04/19 18:59 06:59 Intake Total 800 Balance 800 - Labs Labs: 02/03/19 07:03 02/03/19 07:03 PT 13.2 SECONDS (9.7-12.2) H 01/27/19 06:52 INR 1.2 01/27/19 06:52 APTT 30.7 SECONDS (21-34) 01/27/19 06:52 Assessment and Plan - Assessment and Plan (Free Text) Plan: Patient seen and evaluated personally by me. Plan of care d/w the medical driver and as documented
== END 2019-02-03 19:29 | DRG 494 ==
LOC: C.ER 13:16 → C.6T 16:10
PROVIDERS: ADMIT Internal Medicine; ATTEND Internal Medicine
PROC: 0QSJ04Z Reposition Right Fibula with Internal Fixation Device, Open Approach (ICD-10-PCS; principal; 2019-02-02 15:00)
DX: S82.851A Displaced trimalleolar fracture of right lower leg, initial encounter for closed fracture (principal); W18.30XA Fall on same level, unspecified, initial encounter; J32.3 Chronic sphenoidal sinusitis; I10 Essential (primary) hypertension; R42 Dizziness and giddiness; I44.0 Atrioventricular block, first degree